=== PATIENT | male | born 1980 | race Caucasian/White ===

== ENCOUNTER 2020-05-04 18:56 | Inpatient (IN) ==
[2020-05-04] MEDS ORDERED: LORazepam 2 MG/ML VIAL IV PRN (19:08)
[2020-05-04] MEDS ORDERED: FLUMAZENIL 0.1 MG/ML ML IV PRN (19:08)
[2020-05-04] MEDS ORDERED: 0.9 % SODIUM CHLORIDE 1,000 ML IV ONE ×3 (19:25→21:03)
[2020-05-04] MEDS ORDERED: ONDANSETRON 4 MG/2 ML VIAL IV PRN ×3 (19:30→23:48)
[2020-05-04] MEDS ORDERED: VANCOMYCIN PER PHARMACY IV ONE (19:31)
--- NOTE | 2020-05-04 19:45 | Emergency Department Note ---
HPI General Chief complaint: Overdose Stated complaint: over dose of meth Time Seen by Provider: 05/04/20 19:00 Source: patient Mode of arrival: ambulatory History of Present Illness HPI Narrative: This is a 40-year-old IV drug user who presents with 1 week of generalized weakness, lethargy, nausea, and malaise causing him to call into [email or web address] for the past 2 weeks. He injects methamphetamines daily. His primary injection sites are his right antecubital and his bilateral popliteal fossa is. His friend helped him inject a combination of methamphetamine and bong water this evening into his right external jugular vein about an hour and a half ago. He denies a history of previous admission for blood infection or endocarditis. He has been using methamphetamines "since he was a teenager." He denies other illicit drug use including heroin. He does smoke marijuana. On exam he is febrile to 102 F and tachycardic with a rate of 134 bpm. EKG shows sinus tachycardia and no acute ST changes to suggest ischemia. Related Data Previous Rx's Medication Instructions Recorded levofloxacin 500 mg PO QDAY #10 tab 03/04/20 Allergies Allergy/AdvReac Type Severity Reaction Status Date / Time No Known Drug Allergies Allergy Unverified 08/15/17 10:50 Review of Systems ROS ROS Narrative: Narrative: All systems ED: reviewed and negative except as stated. [facility] Narrative Patient History Narrative: Narrative: Medical/Surgical/Family History All Active Problems Finger laceration (Acute) Acute orchitis (Acute) Septic shock (Acute) Methamphetamine use (Acute) Active intravenous drug use (Acute) Social History Smoking Status: Current every day smoker Exam Narrative Narrative: General: AOx3, NAD, toxic appearing. Lethargic. HEENT: PERRLA, EOMI, normocephalic. Dry mucous membranes. Normal facies and normal dentition. Left external jugular with puncture wound consistent with recent IV drug use. There is a small area of induration, but no drainage and no erythema. Chest: Symmetric Respiratory: Lungs clear to auscultation bilaterally. No respiratory distress. Unlabored breathing. Heart: Tachycardic, no murmurs/clicks/rubs. Abdomen: Generalized tenderness, Non distended, hypoactive bowel tones. No organomegaly. Extremities: Warm and well perfused. No edema. DP 2+ bilaterally. Neuro: No focal deficits. Cranial nerves II-XII normal. Skin: Hot to the touch, no rashes or lesions, no cyanosis. No petechiae, no erythema, no lesions or abscesses noted Psych: Normal mood and affect, cooperative Heme/Lymph: No bruising Course Course Course Narrative: Is a 40-year-old male IV drug user who presents with sepsis and acute methamphetamine intoxication. Reevaluation(s) Reevaluation #1: Obtain basic labs, blood cultures x2, lactic acid, chest x-ray, UA, UDS, Covid screen reflex to self yet if negative Give IV fluids for resuscitation and start broad-spectrum antibiotics including vancomycin for MRSA coverage Reevaluation #2: Rapid Covid is negative. Chest x-ray shows no acute inf iltrates or septic emboli. Lactic acid is 4.4. Patient has been mildly responsive to IV fluids. His tachycardia is likely exacerbated by his methamphetamine intoxication, so it is unclear if this is compensatory tachycardia or drug-induced tachycardia. Vital Signs Vital signs: Vital Signs Temperature 102.5 F H 05/04/20 19:01 Pulse Rate 136 H 05/04/20 19:01 Respiratory Rate 20 05/04/20 19:01 Blood Pressure 97/54 05/04/20 19:01 Pulse Oximetry (%) 100 05/04/20 19:01 Temperature 100.5 F H 05/04/20 21:59 Pulse Rate 135 H 05/04/20 21:59 Respiratory Rate 24 H 05/04/20 21:59 Blood Pressure 86/65 05/04/20 21:59 Pulse Oximetry (%) 95 05/04/20 21:59 [facility] Narrative Medical decision making narrative: Sepsis: IV drug use related bacteremia and possible endocarditis. The patient is requiring pressors, IV fluids, and broad- spectrum antibiotics at this time. I have spoken with the hospitalist, Dr. Pineda, and he will be accepting the patient for ICU admission. -Sepsis work-up is pending -Patient is getting another 2 L of IV fluid resuscitation with a total of 5 L of IV fluid resuscitation at time of signout -VBG, CRP, ESR, procalcitonin have been ordered at the hospitalist request and are pending -CMP is still pending -UA pending Lab Data Result diagrams: 05/04/20 19:06 05/04/20 19:06 Labs: Lab Results 05/04/20 05/04/2020 Range/Units 19:06 19:06 19:06 WBC 5.4 (4.5-11.0) K/mcL RBC 5.85 (4.50-5.90) M/mcL Hgb 15.4 (13.5-16.5) g/dL Hct 49.1 (41.0-55.0) % MCV 83.9 (80.0-100.0) fL MCH 26.3 (26.0-34.0) pg MCHC 31.4 (31.0-36.0) g/dL RDW 14.0 (11.5-14.5) % Plt Count 277 (140-440) K/mcL MPV 8.9 (7.4-10.4) fL Neut % (Auto) 91.5 H (38.0-78.0) % Lymph % (Auto) 6.9 L (15.0-49.0) % [place] % (Auto) 0.4 L (1.0-12.0) % Eos % (Auto) 0.6 (0.0-7.0) % Baso % (Auto) 0.6 (0.0-2.0) % Lymph # (Auto) 0.37 L (1.50-4.80) K/mcL [place] # (Auto) 0.02 L (0.10-0.90) K/mcL Eos # (Auto) 0.03 (0.00-0.70) K/mcL Baso # (Auto) 0.03 (0.00-0.20) K/mcL Absolute Neutrophils 4.95 (1.80-8.00) K/mcL VBG Lactic Acid (0.5-2.0) mmol/L Sodium TNP Potassium TNP Chloride TNP Carbon Dioxide TNP Anion Gap TNP BUN TNP Creatinine TNP GFR Calculation TNP Glucose TNP Calcium TNP Total Bilirubin TNP AST TNP ALT TNP Alkaline Phosphatase TNP Total Protein TNP Albumin TNP Globulin TNP Albumin/Globulin Ratio TNP Ethyl Alcohol 0.010 H (<0.010) gm/dL 05/04/20 Range/Units 19:56 WBC (4.5-11.0) K/mcL RBC (4.50-5.90) M/mcL Hgb (13.5-16.5) g/dL Hct (41.0-55.0) % MCV (80.0-100.0) fL MCH (26.0-34.0) pg MCHC (31.0-36.0) g/dL RDW (11.5-14.5) % Plt Count (140-440) K/mcL MPV (7.4-10.4) fL Neut % (Auto) (38.0-78.0) % Lymph % (Auto) (15.0-49.0) % [place] % (Auto) (1.0-12.0) % Eos % (Auto) (0.0-7.0) % Baso % (Auto) (0.0-2.0) % Lymph # (Auto) (1.50-4.80) K/mcL [place] # (Auto) (0.10-0.90) K/mcL Eos # (Auto) (0.00-0.70) K/mcL Baso # (Auto) (0.00-0.20) K/mcL Absolute Neutrophils (1.80-8.00) K/mcL VBG Lactic Acid 4.4 H* (0.5-2.0) mmol/L Sodium Potassium Chloride Carbon Dioxide Anion Gap BUN Creatinine GFR Calculation Glucose Calcium Total Bilirubin AST ALT Alkaline Phosphatase Total Protein Albumin Globulin Albumin/Globulin Ratio Ethyl Alcohol (<0.010) gm/dL CC TIME Critical Care Time Critical Care Time: Yes Total Critical Care Time: 50 Attestation: I have spent 50 minutes of direct bedside care of this critically ill patient and management of his sepsis with aggressive IV fluid resuscitation, pressor administration, initiation of broad-spectrum antibiotics coordination of care for ICU hospital admission with the on-call hospitalist. Discharge Plan Patient/Caregiver Discharge Instructions Pt seen by TEACHER VOCAL/PA only: Yes Clinical Impression: Septic shock, Methamphetamine use, Active intravenous drug use Patient Disposition: Xfer As Inpt ([facility]) Condition: Undetermined Follow up with: No,PCP [Primary Care Provider] - Prescriptions: No Action levofloxacin 500 mg tablet 500 mg PO QDAY Qty: 10 RF: 0
[2020-05-04 20:11] LABS: Basophils # (Auto) 0.03 K/mcL (0.00-0.20); Basophils % (Auto) 0.6 % (0.0-2.0); Eosinophils # (Auto) 0.03 K/mcL (0.00-0.70); Eosinophils % (Auto) 0.6 % (0.0-7.0); Hematocrit 49.1 % (41.0-55.0); Hemoglobin 15.4 g/dL (13.5-16.5); Lymphocytes # (Auto) 0.37 K/mcL (1.50-4.80); Lymphocytes % (Auto) 6.9 % (15.0-49.0); Mean Cell Volume 83.9 fL (80.0-100.0); Mean Corpuscular HGB Conc 31.4 g/dL (31.0-36.0); Mean Platelet Volume 8.9 fL (7.4-10.4); Monocytes # (Auto) 0.02 K/mcL (0.10-0.90); Monocytes % (Auto) 0.4 % (1.0-12.0); Neutrophils % (Auto) 91.5 % (38.0-78.0); Platelet Count 277 K/mcL (140-440); RBC 5.85 M/mcL (4.50-5.90); WBC 5.4 K/mcL (4.5-11.0)
[2020-05-04 20:34] LABS: Alcohol, Blood < 10.0 mg/dL
[2020-05-04] MEDS ORDERED: VANCOMYCIN 2,000 MG in 0.9 % SODIUM CHLORIDE 500 ML IV ONE (20:43)
[2020-05-04] MEDS ORDERED: PIPERACILLIN SODIUM/TAZOBACTAM 3.375 GM in DEXTROSE 5% IN WATER 50 ML IV ONE (20:45)
[2020-05-04] MEDS ORDERED: ACETAMINOPHEN 1,000 MG/100 ML BAG IV ONE (20:51)
[2020-05-04] MEDS ORDERED: 0.9 % SODIUM CHLORIDE 2,000 ML IV ONE (21:58)
[2020-05-04] MEDS ORDERED: 0.9 % SODIUM CHLORIDE 250 ML IV SCH (22:00)
[2020-05-04] MEDS ORDERED: NOREPINEPHRINE BITARTRATE 8 MG in 0.9 % SODIUM CHLORIDE 242 ML IV SCH (22:00)
--- NOTE | 2020-05-04 22:00 | Internal Med History&Physical ---
HPI History of Present Illness Patient information: Note initiated : 05/04/20 at 9:57 pm Service Date, if different from initiated Date: [] Patient: Aime De La Fuente 40 y/o M admitted on for over dose of meth. 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 Patient missed going to work for over a week however did not seek medical help. He complains of associated poor appetite but denies dysuria, diarrhea, skin rash, hematuria cough. He also denies sick contacts. Patient does complains of lower back pain/left knee swelling/weakness left leg but denies diplopia/draining skin lesions. He is extremely anxious and fidgety He is a regular injection drug use methamphetamine and last used an hour and a half prior to presentation patient his friend helped him inject external jugular vein. Initial work-up in the ER was consistent with septic shock with systolics in 80s with tachycardia 140/tachypnea 35/hypoxia requiring 4 L oxygen and a fever of 102.5. Patient received 5 L of crystalloid bolus started on pressors. Cultures were drawn and antibiotics initiated. Lactic acid 4.4/creatinine 1.5/elevated LFTs consistent with multiple endorgan dysfunction Subsequently hospitalist service was consulted for admission and management of septic shock from unclear source. Likely bacteremia from injection drug use Review of systems 10 point review system was performed and is negative except for ones discussed above PFSH PFSH All Active Problems Knee effusion, left (Acute) Finger laceration (Acute) Acute orchitis (Acute) Septic shock (Acute) Methamphetamine use (Acute) Active intravenous drug use (Acute) Social History smoking status: Unknown if ever smoked MEDS/ALLERGIES Home Medications and Allergies Home Medications Medication Instructions Recorded Confirmed Type No Known Home Meds 05/05/20 05/05/20 History Allergies Allergy/AdvReac Type Severity Reaction Status Date / Time No Known Drug Allergies Allergy Unverified 08/15/17 10:50 EXAM Constitutional Vitals: Temp Pulse Resp BP Pulse Ox 102.7 F H 136 H 31 H 90/65 93 05/04/20 21:08 05/04/20 21:01 05/04/20 21:01 05/04/20 21:01 05/04/20 21:01 Very anxious Head normocephalic Oral cavity moist No ear nose discharge Eye movement symmetrical, no subconjunctival hemorrhage Neck supple no lymphadenopathy S1-S2 tachycardia at 140 Nonlabored breathing Nondistended nontender abdomen Lower back tenderness but no area of fluctuance Left knee swelling noted. Right lower extremity no cyanosis clubbing or joint swelling Skin no suspicious lesion, splinter hemorrhage Psych anxious no hallucination Neuro normal higher function DATA Data Completed and Pending Labs: Labs from last 24 hours 05/04/20 05/04/20 05/04/20 19:56 19:56 19:54 WBC RBC Hgb Hct MCV MCH MCHC RDW Plt Count MPV Neut % (Auto) Lymph % (Auto) [place] % (Auto) Eos % (Auto) Baso % (Auto) Lymph # (Auto) [place] # (Auto) Eos # (Auto) Baso # (Auto) Absolute Neutrophils VBG Lactic Acid 4.4 H* Sodium Pending Potassium Pending Chloride Pending Carbon Dioxide Pending Anion Gap Pending BUN Pending Creatinine Pending GFR Calculation Pending Glucose Pending Calcium Pending Total Bilirubin Pending AST Pending ALT Pending Alkaline Phosphatase Pending Total Protein Pending Albumin Pending Globulin Pending Albumin/Globulin Ratio Pending Ethyl Alcohol SARS-CoV-2 (PCR) Pending 05/04/20 05/04/20 05/04/20 19:06 19:06 19:06 WBC 5.4 RBC 5.85 Hgb 15.4 Hct 49.1 MCV 83.9 MCH 26.3 MCHC 31.4 RDW 14.0 Plt Count 277 MPV 8.9 Neut % (Auto) 91.5 H Lymph % (Auto) 6.9 L [place] % (Auto) 0.4 L Eos % (Auto) 0.6 Baso % (Auto) 0.6 Lymph # (Auto) 0.37 L [place] # (Auto) 0.02 L Eos # (Auto) 0.03 Baso # (Auto) 0.03 Absolute Neutrophils 4.95 VBG Lactic Acid Sodium TNP Potassium TNP Chloride TNP Carbon Dioxide TNP Anion Gap TNP BUN TNP Creatinine TNP GFR Calculation TNP Glucose TNP Calcium TNP Total Bilirubin TNP AST TNP ALT TNP Alkaline Phosphatase TNP Total Protein TNP Albumin TNP Globulin TNP Albumin/Globulin Ratio TNP Ethyl Alcohol 0.010 H SARS-CoV-2 (PCR) A/P Narrative A/P Narrative: * Septic shock-elevated lactate/fever/tachycardia tachypnea with multiple endorgan dysfunction. Pancultures/antibiotic coverage. Broad-spectrum antibiotics/vasopressors/crystalloids/venous lactate trending. * Probable bacteremia in the setting of IV drug use. Rule out endocarditis. Procalcitonin/ESR/endocarditis work-up including serial blood cultures/echocardiogram * Acute renal failure creatinine 1.5 secondary septic shock. Aggressive crystalloids * Acute hypoxic respiratory failure secondary to septic shock endorgan dysfunction. Chest x-ray no evidence of pneumonia * Elevated LFTs early shock liver. Crystalloids * Anion gap lactic acidosis -secondary to severe sepsis and endorgan dysfunction * Left knee swelling likely septic arthritis. Arthrocentesis/joint fluid studies * Injection drug use-counseled for cessation, Case management to coordinate rehab resources/outpatient substance abuse detoxification program * Full code Plan * ICU admission * Vasopressors/antibiotics/crystalloids * Venous lactate trending * Monitor urine output/avoid nephrotoxins * Echocardiogram * CT lower back * Arthrocentesis/joint fluid studies * Serial blood culture Patient critically ill. [place] 2 score 18 with multiple endorgan dysfunction. Admit to ICU. Time spent on evaluation/management of septic shock in excess of 110 minutes including 35 minutes critical care time Time Spent With Patient Time: Total time spent is greater than 50% in coordination of care (as documented) at patient's floor/unit and/or counseling patient:
[2020-05-04 22:07] LABS: ALT/SGPT 91 U/L (<40); AST/SGOT 177 U/L (<40); Albumin 3.3 gm/dL (3.2-5.2); Albumin/Globulin Ratio 1.1 (1.0-2.3); Alkaline Phosphatase 153 U/L (39-117); Bilirubin,Total 0.4 mg/dL (0.1-1.0); Blood Urea Nitrogen 15 mg/dL (6-20); Calcium 8.6 mg/dL (8.6-10.4); Carbon Dioxide 23 mmol/L (22-30); Chloride 100 mmol/L (96-108); Glomerular Filtration Rate 58; Glucose 79 mg/dL (70-105)
[2020-05-04 22:50] LABS: ABG Methemoglobin 0.3 % (0.4-1.5); Total Hemoglobin 12.4 gm/Dl (13.5-16.5); VBG Base Excess -4 (-2-3); VBG HCO3 21.3 mmol/L (24.0-28.0); VBG Oxygen Saturation 82.1 % (40.0-70.0); VBG PCO2 37.8 mmHg (41.0-51.0); VBG PH 7.37 U (7.32-7.42); VBG Total CO2 22.4 mmol/L (25.0-29.0)
[2020-05-04] MEDS ORDERED: BISACODYL 10 MG SUPP.RECT PR PRN (23:48)
[2020-05-04] MEDS ORDERED: POLYETHYLENE GLYCOL 3350 17 GM PACKET PO PRN (23:48)
[2020-05-04] MEDS ORDERED: VANCOMYCIN PER PHARMACY IV SCH (23:48)
[2020-05-04] MEDS ORDERED: ONDANSETRON 4 MG ODT TABLET SL PRN (23:48)
[2020-05-04] MEDS ORDERED: MAGNESIUM SULFATE 2 GM/50 ML BAG IV PRN (23:48)
[2020-05-04] MEDS ORDERED: POTASSIUM CHLORIDE 40 MEQ in DEXTROSE 5% IN WATER 500 ML IV PRN (23:48)
[2020-05-04] MEDS ORDERED: POTASSIUM CHLORIDE 20 MEQ PACKET PO PRN (23:48)
[2020-05-04] MEDS ORDERED: ACETAMINOPHEN 650 MG/65 ML BAG IV PRN (23:48)
[2020-05-05] MEDS: 0.9 % SODIUM CHLORIDE 250 ML IV SCH ×2 (00:54→16:05)
[2020-05-05] MEDS: 0.9 % SODIUM CHLORIDE 1,000 ML IV SCH ×5 (00:54→22:08)
[2020-05-05] MEDS: NOREPINEPHRINE BITARTRATE 8 MG in 0.9 % SODIUM CHLORIDE 242 ML IV SCH ×2 (00:55→12:31)
[2020-05-05] MEDS: 0.9 % SODIUM CHLORIDE 10 ML SYRINGE IV SCH ×5 (00:55→21:25)
[2020-05-05] MEDS: PIPERACILLIN SODIUM/TAZOBACTAM 3.375 GM in DEXTROSE 5% IN WATER 50 ML IV SCH ×4 (01:30→17:30)
[2020-05-05 02:23] LABS: Appearance,Urine CLOUDY (Clear); Bilirubin,Urine Negative (Negative); Color,Urine YELLOW; Culture Indicated,Urine No; Glucose,Urine (UA) Negative (Negative); Ketones,Urine Negative (Negative); Leukocyte Esterase,Urine Negative /ug (Negative); Mucus,Urine MANY /hpf; Nitrate,Urine Negative (Negative); Protein,Urine 100 mg/dL (Negative); Specific Gravity,Urine 1.019 (1.000-1.035); Urine Amorphous Crystals FEW /hpf; Urine Blood Negative (Negative); Urine Hyaline Cast 22 /lph (0-2); Urine RBC 1 /hpf (0-3); Urine Squamous Epithelial Cell 0 /hpf (0-4); Urine WBC 5 /hpf (0-4); Urobilinogen,Urine Negative
--- NOTE | 2020-05-05 02:39 | Consultation ---
DATE OF CONSULTATION: 05/05/2020 REASON FOR CONSULTATION: Rule out septic left knee. CONSULTING PERSON: Hospitalist, Dr. Cordova. HISTORY OF PRESENT ILLNESS: The patient is currently somewhat uncomfortable and has limited capacity to discuss his current situation, but with chart review, information was collected. He has been complaining of approximately 1- 2 weeks of weakness, fatigue, fevers and has been missing work secondary to this. He has presented to the Emergency Department for further evaluation and treatment. He is a known daily IV drug user with methamphetamine with last use approximately an hour and a half prior to his admission. He was found to be septic in the ER with hypotension, tachycardia, and a fever of 102 and was started on pressors and antibiotics and admitted to the ICU. Currently, concern is for bacteremia from IV drug use, but also has a painful left knee with swelling. Aspiration was attempted in the Emergency Department without success and thus orthopedics was consulted for further evaluation. PAST MEDICAL HISTORY: None reported PAST SURGICAL HISTORY: He has had operative fixation of his right tibial plateau fracture. ALLERGIES: No known drug allergies. MEDICATIONS: None routinely. 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 REVIEW OF SYSTEMS: As mentioned. He has been complaining of fevers, chills, aches, pains, left knee pain as well as some back pain. Otherwise, the 10 pointt review of systems negative as best could be obtained for him today. PHYSICAL EXAMINATION: VITAL SIGNS: His blood pressure is 96/94, heart rate 109, respiratory rate is 22, currently afebrile at temperature 96, but on admission was 102. GENERAL: He is somewhat comfortable, does answer appropriately as is alert to that extent. EXTREMITIES: Examination of his left lower extremity does not reveal any abrasions or skin lacerations were noted. He has a Band-Aid over his left knee from prior attempt at aspiration over anterolateral portal position. He can flex and extend his knee. With passive motion, it is not painful with extension, but does have pain past approximately 50 degrees of flexion but able to flex to 90 degrees. Positve joint effusion of the knee.. No tenderness about the ankle itself. His foot is warm and well perfused. Sensation to light touch is intact. IMAGING: He has plain x-rays of his left knee, which has a small joint effusion. No fractures noted or underlying osteomyelitis. LABORATORY DATA: He has a CRP of 1.4, ESR of 14. Lactic acid is pending. His creatinine is 1.5, elevated liver enzymes and renal function somewhat decreased. His white count is 5.4, H and H is 15.4 and 49.1. He does have a left shift, 91%. COVID test is negative. Blood cultures were pending. ASSESSMENT AND PLAN: This is a 40-year-old male with known IV drug use with septic picture with concern for involvement of his left knee. Overall, clinically does not appear to be significantly indicative of infection. However, given his overall picture along with the joint effusion, I think aspiration is reasonable to send it for labs. Did discuss if these are positive for infection, a recommendation would be for formal irrigation and debridement given the underlying risk of damage to the cartilage. The patient is amenable to this. Thus, the knee was sterilely prepped along the superolateral border of the patella itself with Betadine. Utilizing 18-gauge needle, the joint was aspirated of slightly cloudy synovial fluid. No purulence and could see through it. About 25 mL was aspirated, Once this was removed, a Band-Aid was applied. The patient did tolerate this well. There was no complications. The fluid was sent off for cultures, Gram stain, cell count with differential, crystals as well as fungal cultures. We will follow up on these cultures in the morning. Review labs in the morning and if they indicate infection, then we would proceed with irrigation and debridement. The patient is aware. Questions were otherwise answered. DLW:beverly Job ID: [id number] Doc ID: [id number] Ha Gomez MD [facility]
[2020-05-05 04:53] LABS: Appearance,Synovial Fluid Hazy; Color,Synovial Fluid Yellow; Crystals,Body Fluid None Seen (None Seen); Lymphocytes,Synovial Fluid 23 %; Neutrophils,Synovial Fluid 24 % (0-25); Nucleated Cells,Synovial Fld 6662 /cumm; Other Cells,Synovial Fluid 53 %
[2020-05-05 07:04] LABS: ALT/SGPT 107 U/L (<40); AST/SGOT 144 U/L (<40); Albumin 2.8 gm/dL (3.2-5.2); Alkaline Phosphatase 127 U/L (39-117); Bilirubin,Direct 0.3 mg/dL (<0.3); Bilirubin,Total 0.6 mg/dL (0.1-1.0); Blood Urea Nitrogen 18 mg/dL (6-20); Calcium 7.5 mg/dL (8.6-10.4); Carbon Dioxide 21 mmol/L (22-30); Chloride 105 mmol/L (96-108); Globulin 2.9 gm/dL (2.2-3.7); Glomerular Filtration Rate 47; Glucose 94 mg/dL (70-105); Lactate Dehydrogenase 357 U/L (135-225); Phosphorous 2.2 mg/dL (2.5-4.5); Triglycerides 64 mg/dL (<150); Uric Acid 5.9 mg/dL (2.5-8.0)
--- NOTE | 2020-05-05 07:09 | Orthopedic Progress Note ---
SUBJECTIVE Subjective Patient information: Note initiated : 05/05/20 at 7:05 am Service Date, if different from initiated Date: [] Patient: Aime De La Fuente 40 y/o M admitted on 05/04/20 for over dose of meth. Chief Complaint: [r/o left knee septic arthritis] Constitutional Vitals: Vital Signs Temp Pulse Resp BP Pulse Ox 99.1 F H 107 H 21 97/62 98 05/05/20 04:16 05/05/20 05:02 05/05/20 05:52 05/05/20 05:31 05/05/20 05:02 Period Temp Pulse Resp BP Sys/Rodriguez Pulse Ox Last 24 Hr 96 F-102.7 F 29-140 16-35 76-118/41-89 92-100 Intake and Output 05/04/20 05/05/20 05/05/20 21:59 05:59 13:59 Intake Total 3150 1778 Output Total 1100 Balance 3150 678 Weight 203 lb 6.4 oz 211 lb 3.2 oz Intake & Output: Intake & Output 05/04/20 05/05/20 05/05/20 21:59 05:59 13:59 Intake Total 3150 1778 Output Total 1100 Balance 3150 678 Weight 203 lb 6.4 oz 211 lb 3.2 oz Intake: IV 3150 1778 Sodium Chloride 0.9% 2,000 ml @ 3000 1349 Wide Open IV BOLUS ONE Rx#: [id number] Levophed 8 mg In Sodium 25 Chloride 0.9% 242 ml @ 10 MCG/ MIN 18.75 mls/hr IV Q14H [facility] Rx #:[id number] Zosyn 3.375 gm In Dextrose 5% 50 50 in Water 50 ml @ 100 mls/hr IV Q6H [facility] Rx#:[id number] Vancomycin 2,000 mg In Sodium 354 Chloride 0.9% 500 ml @ 250 mls/ hr IV ONCE ONE Rx#:[id number] Output: Urine Catheter Amount 1100 Other: Urine Appearance Clear Uretheral (Alatorre) Clear Urine Color Dark Yellow Straw Uretheral (Alatorre) Dark Yellow OBJ DATA Labs CBC & Chem 7: 05/04/20 19:06 05/05/20 05:43 Labs: Abnormal Lab Results 05/05/20 05/05/20 05/05/20 05:43 05:43 01:20 Neut % (Auto) Lymph % (Auto) [place] % (Auto) Lymph # (Auto) [place] # (Auto) ABG Methemoglobin VBG pCO2 VBG pO2 VBG HCO3 VBG Total CO2 VBG O2 Saturation VBG Base Excess VBG Lactic Acid 3.5 H Carboxyhemoglobin Total Hemoglobin Carbon Dioxide 21 L Anion Gap Creatinine 1.8 H Calcium 7.5 L Phosphorus 2.2 L Magnesium 1.4 L Direct Bilirubin 0.3 H GGT 184 H AST 144 H ALT 107 H Alkaline Phosphatase 127 H Lactate Dehydrogenase 357 H C-Reactive Protein Total Protein 5.7 L Albumin 2.8 L Procalcitonin Urine Appearance Cloudy A Urine Protein 100 A Urine WBC 5 H Amorphous Crystals Few A Hyaline Casts 22 H Urine Mucus Many A Ethyl Alcohol 05/05/20 05/04/20 05/04/20 00:15 22:11 22:11 Neut % (Auto) Lymph % (Auto) [place] % (Auto) Lymph # (Auto) [place] # (Auto) ABG Methemoglobin 0.3 L VBG pCO2 37.8 L VBG pO2 53.0 H VBG HCO3 21.3 L VBG Total CO2 22.4 L VBG O2 Saturation 82.1 H VBG Base Excess -4 L VBG Lactic Acid 3.4 H Carboxyhemoglobin 5.2 H Total Hemoglobin 12.4 L Carbon Dioxide Anion Gap Creatinine Calcium Phosphorus Magnesium Direct Bilirubin GGT AST ALT Alkaline Phosphatase Lactate Dehydrogenase C-Reactive Protein Total Protein Albumin Procalcitonin 79.04 H Urine Appearance Urine Protein Urine WBC Amorphous Crystals Hyaline Casts Urine Mucus Ethyl Alcohol 05/04/20 05/04/20 05/04/20 22:11 19:56 19:56 Neut % (Auto) Lymph % (Auto) [place] % (Auto) Lymph # (Auto) [place] # (Auto) ABG Methemoglobin VBG pCO2 VBG pO2 VBG HCO3 VBG Total CO2 VBG O2 Saturation VBG Base Excess VBG Lactic Acid 4.4 H* Carboxyhemoglobin Total Hemoglobin Carbon Dioxide Anion Gap 17.0 H Creatinine 1.5 H Calcium Phosphorus Magnesium Direct Bilirubin GGT AST 177 H ALT 91 H Alkaline Phosphatase 153 H Lactate Dehydrogenase C-Reactive Protein 1.40 H Total Protein Albumin Procalcitonin Urine Appearance Urine Protein Urine WBC Amorphous Crystals Hyaline Casts Urine Mucus Ethyl Alcohol 05/04/20 05/04/20 19:06 19:06 Neut % (Auto) 91.5 H Lymph % (Auto) 6.9 L [place] % (Auto) 0.4 L Lymph # (Auto) 0.37 L [place] # (Auto) 0.02 L ABG Methemoglobin VBG pCO2 VBG pO2 VBG HCO3 VBG Total CO2 VBG O2 Saturation VBG Base Excess VBG Lactic Acid Carboxyhemoglobin Total Hemoglobin Carbon Dioxide Anion Gap Creatinine Calcium Phosphorus Magnesium Direct Bilirubin GGT AST ALT Alkaline Phosphatase Lactate Dehydrogenase C-Reactive Protein Total Protein Albumin Procalcitonin Urine Appearance Urine Protein Urine WBC Amorphous Crystals Hyaline Casts Urine Mucus Ethyl Alcohol 0.010 H Meds: Medications Acetaminophen (Tylenol) 650 mg PO Q4-6HP PRN; Protocol PRN Reason: Per Pain Protocol/Fever > 101 Bisacodyl (Dulcolax) 10 mg [place] Q2-3DAYS PRN PRN Reason: Constipation Docusate Sodium (Colace) 100 mg PO BID [facility] Heparin Sodium (Porcine) (Heparin) 5,000 unit SQ Q12 [facility] Sodium Chloride (Sodium Chloride 0.9%) 250 mls @ 20 mls/hr IV .[id number] [facility] Last Admin: 05/05/20 00:54 Dose: 20 mls/hr Documented by: Sodium Chloride (Sodium Chloride 0.9%) 1,000 mls @ 0 mls/hr IV BOLUS [facility] Last Admin: 05/05/20 00:54 Dose: 999 mls/hr Documented by: Potassium Chloride 40 meq/ (Dextrose) 520 mls @ 130 mls/hr IV UD PRN PRN Reason: K+ = or < 3.5 Acetaminophen (Ofirmev) 650 mg in 65 mls @ 130 mls/hr IV Q6HP PRN; Protocol PRN Reason: Per Pain Protocol/Fever > 101 Magnesium Sulfate (Magnesium Sulfate) 2 gm in 50 mls @ 50 mls/hr IV UD PRN PRN Reason: MG = or < 1.7 Sodium Chloride (Sodium Chloride 0.9%) 1,000 mls @ 100 mls/hr IV .Q10H [facility] Last Admin: 05/05/20 01:41 Dose: 100 mls/hr Documented by: Piperacillin Sod/Tazobactam (Sod 3.375 gm/ Dextrose) 50 mls @ 100 mls/hr IV Q6H [facility]; Protocol Last Admin: 05/05/20 06:19 Dose: 100 mls/hr Documented by: Norepinephrine Bitartrate 8 mg (/ Sodium Chloride) 250 mls @ 18.75 mls/hr IV Q14H [facility]; Protocol Last Admin: 05/05/20 00:55 Dose: Not Given Documented by: Vancomycin HCl 1,000 mg/ (Sodium Chloride) 250 mls @ 250 mls/hr IV Q8H [facility] Melatonin (Melatonin 3mg Tablet) 3 mg PO HSP PRN PRN Reason: Insomnia Ondansetron HCl (Zofran Odt) 4 mg SL Q4-6HP PRN; Protocol PRN Reason: Nausea And Vomiting Ondansetron HCl (Zofran) 4 mg IV Q4-6HP PRN; Protocol PRN Reason: Nausea And Vomiting Polyethylene Glycol (Miralax) 17 gm PO DAILYP PRN PRN Reason: Constipation Potassium Chloride (Klor-Con) 40 meq PO DAILYP PRN PRN Reason: K+ < 3.5 Senna/Docusate Sodium (Senna Plus Tablet) 1 tab PO HS [facility] Sodium Chloride (Saline Flush) 10 ml IV Q8 [facility] Last Admin: 05/05/20 06:20 Dose: 10 ml Documented by: Vancomycin HCl (Vancomycin Per Pharmacy) 1 order IV UD [facility]; Protocol ABG Interpretation ABG results: 05/04/20 22:11 ABG Methemoglobin 0.3 L VBG pH 7.37 VBG pCO2 37.8 L VBG pO2 53.0 H VBG HCO3 21.3 L VBG Total CO2 22.4 L VBG O2 Saturation 82.1 H VBG Base Excess -4 L A/P Assessment and plan (1) Knee effusion, left: Status: Acute Comment: aspirated left knee early this AM for effusion in picture of septic IV drug user to rule out left septic knee joint - cell count 6600 with 24% neutrophils. grams stain negative, cultures are pending, no crystals --- given the cell count along with % neutrophils, this is not a septic joint. --- Currently no plan for operative treatment of left knee joint effusion, however if condition changes such as increased effusion, pain, difficulty in bending knee, weight bearing status can re- consult. thank you. Time Spent With Patient Time: Total time spent is greater than 50% in coordination of care (as documented) at patient's floor/unit and/or counseling patient:
[2020-05-05 07:48] LABS: Amphetamine Screen,Urine Suspect positive; Barbiturate Screen,Urine None detected; Benzodiazepines Screen,Urine None detected; Cannabinoid Screen,Urine Suspect Positive; Cocaine Screen,Urine None detected; Opiate Screen,Urine None detected; Oxycodone, Urine Screen None detected; Phencyclidine Screen,Urine None detected
[2020-05-05 08:35] LABS: Basophils # (Auto) 0.11 K/mcL (0.00-0.20); Basophils % (Auto) 0.3 % (0.0-2.0); Eosinophils # (Auto) 0.12 K/mcL (0.00-0.70); Eosinophils % (Auto) 0.3 % (0.0-7.0); Hematocrit 39.5 % (41.0-55.0); Hemoglobin 12.5 g/dL (13.5-16.5); Lymphocytes # (Auto) 0.82 K/mcL (1.50-4.80); Lymphocytes % (Auto) 2.3 % (15.0-49.0); Mean Cell Volume 84.4 fL (80.0-100.0); Mean Corpuscular HGB Conc 31.6 g/dL (31.0-36.0); Mean Platelet Volume 8.7 fL (7.4-10.4); Monocytes # (Auto) 1.27 K/mcL (0.10-0.90); Monocytes % (Auto) 3.6 % (1.0-12.0); Neutrophils % (Auto) 93.5 % (38.0-78.0); Platelet Count 254 K/mcL (140-440); RBC 4.68 M/mcL (4.50-5.90); Red Cell Distribution Width 14.6 % (11.5-14.5); WBC 35.5 K/mcL (4.5-11.0)
--- NOTE | 2020-05-05 08:39 | XRay Report ---
HISTORY: Overdose of methamphetamine FINDINGS: The lungs are clear and normally expanded. There is no pulmonary edema or evidence of aspiration. The heart size, mediastinum, ira and pleura are normal. There is mild separation of the left acromioclavicular joint. IMPRESSION: No acute abnormality Interpreted and Authenticated by: Darvin Pimentel 05/05/20
--- NOTE | 2020-05-05 08:46 | XRay Report ---
HISTORY: Left knee joint effusion FINDINGS: The joint spaces are normal in width and alignment. There is no fracture, subluxation or degenerative change. A small suprapatellar joint effusion is present. There are no abnormal soft tissue calcifications. IMPRESSION: Small joint effusion Interpreted and Authenticated by: Darvin Pimentel 05/05/20
[2020-05-05] MEDS ORDERED: 0.9 % SODIUM CHLORIDE 1,000 ML IV ONE ×2 (09:27→11:39)
[2020-05-05] MEDS: LORazepam 2 MG/ML VIAL IV ONE ×2 (10:08→11:14)
[2020-05-05] MEDS ORDERED: LORazepam 2 MG/ML VIAL ONE (10:13)
--- NOTE | 2020-05-05 10:57 | XRay Report ---
HISTORY: Right central line insertion FINDINGS: Right internal jugular catheter has been inserted with the tip in the superior vena cava above the right atrium. There is no pneumothorax, pleural effusion or widening of the mediastinum. The heart size is normal. There is a generalized haziness in the lung parenchyma bilaterally, most apparent around the lower ira, right worse than left. This has developed since the prior chest x-ray done yesterday. This could be due to inflammation or fluid overload. IMPRESSION: No complication following central line placement Interpreted and Authenticated by: Darvin Pimentel 05/05/20
--- NOTE | 2020-05-05 11:13 | General Surgery Procedure Note ---
Date of procedure: Note initiated : 05/05/20 at 11:07 am Service Date, if different from initiated Date: [] Pre-op diagnosis: Septic shock Post-op diagnosis: same Procedure: US guided RIJ central line Findings: 1) placed with single stick 2) Wire confirmed on US in RIJ 3) post procedure CXR shows tip near atrial caval junction - well positioned. OK to use Grafts/Implants: Central line Anesthesia: local Surgeon: Rhys Watts Estimated blood loss: 2 Pathology: none sent Description of procedure: Consent obtained. Area sterilely prepped and draped. RIJ confirmed to be patent, compressible lateral vessel on US. Pt placed in Trendelenburg - single stick into vein with dark non pulsatile blood. Wire threaded easily. Skin nicked with scalpel. tack dilated. Central line - preflushed and placed to 15cm at skin. Wire removed. All ports flushed and dew easily. Sutured in place. Dressing applied. CXR obtain with results as above. Pt tolerated well. Condition: critical Disposition: ICU
[2020-05-05] MEDS: DOCUSATE SODIUM 100 MG CAPSULE PO SCH ×2 (11:55→20:36)
[2020-05-05] MEDS: HEPARIN 5,000 UNIT/ML VIAL SQ SCH ×2 (11:55→20:36)
[2020-05-05] MEDS: 0.9 % SODIUM CHLORIDE 10 ML SYRINGE IV PRN (11:57)
[2020-05-05] MEDS ORDERED: NOREPINEPHRINE BITARTRATE 8 MG in 0.9 % SODIUM CHLORIDE 242 ML IV SCH (12:00)
--- NOTE | 2020-05-05 12:10 | Internal Med Progress Note ---
SUBJECTIVE Subjective Patient information: Note initiated : 05/05/20 at 12:02 pm Service Date, if different from initiated Date: [] Patient: Aime De La Fuente 40 y/o M admitted on 05/04/20 for over dose of meth. 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 Patient missed going to work for over a week however did not seek medical help. He complains of associated poor appetite but denies dysuria, diarrhea, skin rash, hematuria cough. He also denies sick contacts. Patient does complains of lower back pain/left knee swelling/weakness left leg but denies diplopia/draining skin lesions. He is extremely anxious and fidgety He is a regular injection drug use methamphetamine and last used an hour and a half prior to presentation patient his friend helped him inject external jugular vein. Initial work-up in the ER was consistent with septic shock with systolics in 80s with tachycardia 140/tachypnea 35/hypoxia requiring 4 L oxygen and a fever of 102.5. Patient received 5 L of crystalloid bolus started on pressors. Cultures were drawn and antibiotics initiated. Lactic acid 4.4/creatinine 1.5/elevated LFTs consistent with multiple endorgan dysfunction Subsequently hospitalist service was consulted for admission and management of septic shock from unclear source. Likely bacteremia from injection drug use 05/05-patient critically ill and septic shock requiring pressors. Status post 7 discussed lines. Echocardiogram completed. White count at 35,000 indicative leukemoid reaction. Cultures negative so far. On broad-spectrum antibiotic c overage. Improving urine output. Lactate downtrending. Creatinine up from 1.5-1.8 however urine output more than 40 cc an hour. Magnesium 1.4, phosphorus 2.2, urine drug screen positive for meth/marijuana, Covid PCR pending, left knee joint fluid aspirate 6000 white cell. Central line secured. Procalcitonin 79. Constitutional Vitals: Vital Signs Temp Pulse Resp BP Pulse Ox 100.4 F H 110 H 23 H 130/81 98 05/05/20 07:31 05/05/20 08:31 05/05/20 11:01 05/05/20 11:01 05/05/20 11:01 Period Temp Pulse Resp BP Sys/Rodriguez Pulse Ox Last 24 Hr 96 F-102.7 F 29-140 16-35 76-130/41-89 20-100 Intake and Output 05/04/20 05/05/20 05/05/20 21:59 05:59 13:59 Intake Total 3150 1778 50 Output Total 1100 1260 Balance 3150 678 -1210 Weight 92.261 kg 95.799 kg Remains critically ill On pressors remains tachycardic and tachypneic Alatorre draining clear urine Central line secured On room air, febrile 100.4 Intake & Output: Intake & Output 05/04/20 05/05/20 05/05/20 21:59 05:59 13:59 Intake Total 3150 1778 50 Output Total 1100 1260 Balance 3150 678 -1210 Weight 92.261 kg 95.799 kg Intake: IV 3150 1778 50 Sodium Chloride 0.9% 2,000 ml @ 3000 1349 Wide Open IV [facility] Rx#: [id number] Levophed 8 mg In Sodium 25 Chloride 0.9% 242 ml @ 10 MCG/ MIN 18.75 mls/hr IV Q14H [facility] Rx #:[id number] Zosyn 3.375 gm In Dextrose 5% 50 50 50 in Water 50 ml @ 100 mls/hr IV Q6H [facility] Rx#:[id number] Vancomycin 2,000 mg In Sodium 354 Chloride 0.9% 500 ml @ 250 mls/ hr IV ONCE ONE Rx#:[id number] Output: Urine Catheter Amount 1100 1260 Other: Urine Appearance Clear Clear Uretheral (Alatorre) Clear Urine Color Dark Yellow Dark Yellow Straw Uretheral (Alatorre) Dark Yellow OBJ DATA Labs CBC & Chem 7: 05/05/20 05:43 05/05/20 05:43 Labs: Abnormal Lab Results 05/05/20 05/05/20 05/05/20 05:43 05:43 05:43 WBC 35.5 H* Hgb 12.5 L Hct 39.5 L RDW 14.6 H Neut % (Auto) 93.5 H Lymph % (Auto) 2.3 L [place] % (Auto) Lymph # (Auto) 0.82 L [place] # (Auto) 1.27 H Absolute Neutrophils 33.18 H ABG Methemoglobin VBG pCO2 VBG pO2 VBG HCO3 VBG Total CO2 VBG O2 Saturation VBG Base Excess VBG Lactic Acid 3.5 H Carboxyhemoglobin Total Hemoglobin Carbon Dioxide 21 L Anion Gap Creatinine 1.8 H Calcium 7.5 L Phosphorus 2.2 L Magnesium 1.4 L Direct Bilirubin 0.3 H GGT 184 H AST 144 H ALT 107 H Alkaline Phosphatase 127 H Lactate Dehydrogenase 357 H C-Reactive Protein Total Protein 5.7 L Albumin 2.8 L Procalcitonin Urine Appearance Urine Protein Urine WBC Amorphous Crystals Hyaline Casts Urine Mucus Ur Amphetamines Screen U Marijuana (THC) Screen Ethyl Alcohol 05/05/20 05/05/20 05/05/20 01:20 01:16 00:15 WBC Hgb Hct RDW Neut % (Auto) Lymph % (Auto) [place] % (Auto) Lymph # (Auto) [place] # (Auto) Absolute Neutrophils ABG Methemoglobin VBG pCO2 VBG pO2 VBG HCO3 VBG Total CO2 VBG O2 Saturation VBG Base Excess VBG Lactic Acid 3.4 H Carboxyhemoglobin Total Hemoglobin Carbon Dioxide Anion Gap Creatinine Calcium Phosphorus Magnesium Direct Bilirubin GGT AST ALT Alkaline Phosphatase Lactate Dehydrogenase C-Reactive Protein Total Protein Albumin Procalcitonin Urine Appearance Cloudy A Urine Protein 100 A Urine WBC 5 H Amorphous Crystals Few A Hyaline Casts 22 H Urine Mucus Many A Ur Amphetamines Screen Suspect positive A U Marijuana (THC) Screen Suspect positive A Ethyl Alcohol 05/04/20 05/04/20 05/04/20 22:11 22:11 22:11 WBC Hgb Hct RDW Neut % (Auto) Lymph % (Auto) [place] % (Auto) Lymph # (Auto) [place] # (Auto) Absolute Neutrophils ABG Methemoglobin 0.3 L VBG pCO2 37.8 L VBG pO2 53.0 H VBG HCO3 21.3 L VBG Total CO2 22.4 L VBG O2 Saturation 82.1 H VBG Base Excess -4 L VBG Lactic Acid Carboxyhemoglobin 5.2 H Total Hemoglobin 12.4 L Carbon Dioxide Anion Gap Creatinine Calcium Phosphorus Magnesium Direct Bilirubin GGT AST ALT Alkaline Phosphatase Lactate Dehydrogenase C-Reactive Protein 1.40 H Total Protein Albumin Procalcitonin 79.04 H Urine Appearance Urine Protein Urine WBC Amorphous Crystals Hyaline Casts Urine Mucus Ur Amphetamines Screen U Marijuana (THC) Screen Ethyl Alcohol 05/04/20 05/04/20 05/04/20 19:56 19:56 19:06 WBC Hgb Hct RDW Neut % (Auto) Lymph % (Auto) [place] % (Auto) Lymph # (Auto) [place] # (Auto) Absolute Neutrophils ABG Methemoglobin VBG pCO2 VBG pO2 VBG HCO3 VBG Total CO2 VBG O2 Saturation VBG Base Excess VBG Lactic Acid 4.4 H* Carboxyhemoglobin Total Hemoglobin Carbon Dioxide Anion Gap 17.0 H Creatinine 1.5 H Calcium Phosphorus Magnesium Direct Bilirubin GGT AST 177 H ALT 91 H Alkaline Phosphatase 153 H Lactate Dehydrogenase C-Reactive Protein Total Protein Albumin Procalcitonin Urine Appearance Urine Protein Urine WBC Amorphous Crystals Hyaline Casts Urine Mucus Ur Amphetamines Screen U Marijuana (THC) Screen Ethyl Alcohol 0.010 H 05/04/20 19:06 WBC Hgb Hct RDW Neut % (Auto) 91.5 H Lymph % (Auto) 6.9 L [place] % (Auto) 0.4 L Lymph # (Auto) 0.37 L [place] # (Auto) 0.02 L Absolute Neutrophils ABG Methemoglobin VBG pCO2 VBG pO2 VBG HCO3 VBG Total CO2 VBG O2 Saturation VBG Base Excess VBG Lactic Acid Carboxyhemoglobin Total Hemoglobin Carbon Dioxide Anion Gap Creatinine Calcium Phosphorus Magnesium Direct Bilirubin GGT AST ALT Alkaline Phosphatase Lactate Dehydrogenase C-Reactive Protein Total Protein Albumin Procalcitonin Urine Appearance Urine Protein Urine WBC Amorphous Crystals Hyaline Casts Urine Mucus Ur Amphetamines Screen U Marijuana (THC) Screen Ethyl Alcohol Meds: Medications Acetaminophen (Tylenol) 650 mg PO Q4-6HP PRN; Protocol PRN Reason: Per Pain Protocol/Fever > 101 Bisacodyl (Dulcolax) 10 mg SD Q2-3DAYS PRN PRN Reason: Constipation Docusate Sodium (Colace) 100 mg PO BID [facility] Last Admin: 05/05/20 11:55 Dose: 100 mg Documented by: Heparin Sodium (Porcine) (Heparin) 5,000 unit SQ Q12 [facility] Last Admin: 05/05/20 11:55 Dose: 5,000 unit Documented by: Sodium Chloride (Sodium Chloride 0.9%) 250 mls @ 20 mls/hr IV .[id number] [facility] Last Admin: 05/05/20 00:54 Dose: 20 mls/hr Documented by: Sodium Chloride (Sodium Chloride 0.9%) 1,000 mls @ 0 mls/hr IV BOLUS [facility] Last Admin: 05/05/20 00:54 Dose: 999 mls/hr Documented by: Potassium Chloride 40 meq/ (Dextrose) 520 mls @ 130 mls/hr IV UD PRN PRN Reason: K+ = or < 3.5 Acetaminophen (Ofirmev) 650 mg in 65 mls @ 130 mls/hr IV Q6HP PRN; Protocol PRN Reason: Per Pain Protocol/Fever > 101 Last Admin: 05/05/20 11:56 Dose: 130 mls/hr Documented by: Magnesium Sulfate (Magnesium Sulfate) 2 gm in 50 mls @ 50 mls/hr IV UD PRN PRN Reason: MG = or < 1.7 Last Admin: 05/05/20 10:46 Dose: 50 mls/hr Documented by: Sodium Chloride (Sodium Chloride 0.9%) 1,000 mls @ 100 mls/hr IV .Q10H [facility] Last Admin: 05/05/20 01:41 Dose: 100 mls/hr Documented by: Piperacillin Sod/Tazobactam (Sod 3.375 gm/ Dextrose) 50 mls @ 100 mls/hr IV Q6H [facility]; Protocol Last Admin: 05/05/20 11:54 Dose: 100 mls/hr Documented by: Norepinephrine Bitartrate 8 mg (/ Sodium Chloride) 250 mls @ 18.75 mls/hr IV Q14H [facility]; Protocol Last Admin: 05/05/20 00:55 Dose: Not Given Documented by: Vancomycin HCl 1,000 mg/ (Sodium Chloride) 250 mls @ 250 mls/hr IV Q8H [facility] Melatonin (Melatonin 3mg Tablet) 3 mg PO HSP PRN PRN Reason: Insomnia Ondansetron HCl (Zofran Odt) 4 mg SL Q4-6HP PRN; Protocol PRN Reason: Nausea And Vomiting Ondansetron HCl (Zofran) 4 mg IV Q4-6HP PRN; Protocol PRN Reason: Nausea And Vomiting Polyethylene Glycol (Miralax) 17 gm PO DAILYP PRN PRN Reason: Constipation Potassium Chloride (Klor-Con) 40 meq PO DAILYP PRN PRN Reason: K+ < 3.5 Senna/Docusate Sodium (Senna Plus Tablet) 1 tab PO HS [facility] Sodium Chloride (Saline Flush) 10 ml IV Q8 [facility] Last Admin: 05/05/20 06:20 Dose: 10 ml Documented by: Sodium Chloride (Saline Flush) 10 ml IV Q12 [facility] Sodium Chloride (Saline Flush) 10 ml IV UD PRN PRN Reason: FLUSH Last Admin: 05/05/20 11:57 Dose: 10 ml Documented by: Vancomycin HCl (Vancomycin Per Pharmacy) 1 order IV UD [facility]; Protocol ABG Interpretation ABG results: 05/04/20 22:11 ABG Methemoglobin 0.3 L VBG pH 7.37 VBG pCO2 37.8 L VBG pO2 53.0 H VBG HCO3 21.3 L VBG Total CO2 22.4 L VBG O2 Saturation 82.1 H VBG Base Excess -4 L A/P Assessment and plan (1) Knee effusion, left: Status: Acute Narrative A/P Narrative: * Septic shock-elevated lactate/fever/tachycardia tachypnea with multiple endorgan dysfunction. Pancultures/antibiotic coverage. Broad-spectrum an tibiotics/vasopressors/crystalloids/venous lactate trending. Rule out infect endocarditis/bacteremia/intra-abdominal abscess as a source * Leukemoid reaction, high likelihood bacteremia/intra-abdominal abscess. CT chest pelvis abdomen to rule out an acute process. * Acute renal failure creatinine worsened to 1.8. Secondary to septic shock. Discussed with nephrology. Benefits of using contrast for further evaluation of leukemoid reaction/septic shock far exceeds the risk of deteriorating renal function. Continue crystalloids * Elevated LFTs early shock liver. Stable. * Anion gap lactic acidosis -secondary to severe sepsis and endorgan dysfunction * Left knee swelling status post arthrocentesis. White count 6400. Unlikely septic joint. * Injection drug use-counseled for cessation, Case management to coordinate rehab resources/outpatient substance abuse detoxification program * Full code Plan * Continue vasopressors/antibiotics * Central venous access * Nephrology consult if worsening renal function * Aggressive crystalloids * CT chest abdomen pelvis * Await echocardiogram results * Blood cultures Patient remains critically ill. [place] 2 score 20 with multiple endorgan dysfunction. Continue ICU care. Critical time spent in excess of 45 minutes Time Spent With Patient Time: Total time spent is greater than 50% in coordination of care (as documented) at patient's floor/unit and/or counseling patient:
[2020-05-05] MEDS ORDERED: IOPAMIDOL 100 ML BOTTLE IV ONE (14:17)
--- NOTE | 2020-05-05 14:50 | Cat Scan Report ---
History: Septic shock, leukemoid reaction, meth overdose TECHNIQUE: following injection of 60 cc nonionic contrast, images were acquired during the portal venous phase from the thoracic inlet to the symphysis pubis. Sagittal and coronal reformats are created. The radiation exposure was limited using dose reduction technology. FINDINGS: CHEST: There is subtle centrilobular emphysema and both lung apices. There is consolidation in the periphery of the posterior basal segments of both lower lobes. Adjacent to this there are tiny bilateral pleural effusions. Subtle nonspecific alveolar opacity is present above the minor fissure in the right upper lobe, best seen on axial image #69. There are bands of discoid atelectasis anteriorly in the superior segments of both lower lobes. In the right hilum there are a couple mildly enlarged lymph nodes. The largest measures 1.7 cm. Largest lymph node in the left hilum is approximately 8mm. In the mediastinum the largest lymph node is 1 x 1.1 cm and located in the pretracheal retrocaval space. The heart is normal in size and contour. No pericardial effusion is present. There is a right internal jugular catheter located in the superior vena cava. Abdomen and pelvis: The liver is normal in size but heterogeneous. There is mild periportal edema. No liver abscess or mass are seen. The spleen is normal in size and homogeneous. There is moderate edema in the gallbladder wall. The gallbladder is partially contracted. There are no stones within the lumen. The bile ducts are nondilated. No ascites is present. There is no abscess within the abdomen or pelvis. The pancreas is normal without evidence of inflammation or mass. The adrenals are normal. The kidneys are normal in size shape and contour and there is no evidence of kidney stone, pyelonephritis or hydronephrosis. There is a solitary dilated segment of jejunum in the left upper quadrant which measures 4.5 cm in transverse dimension. The wall of this distended segment does not appear to be thickened or inflamed. Proximal and distal to this, the small intestine is normal in caliber. There is moderate amount stool colon with fecal impaction in the distal sigmoid and rectum. Alatorre catheter is placed in the urinary bladder. Prostate and seminal vesicles are relatively small. No adenopathy is seen within the abdomen or pelvis and there is no ascites. Bone windows show no evidence of osteomyelitis or discitis.. IMPRESSION: Mildly heterogeneous liver with periportal edema. This may be seen with hepatitis and shock liver. Diffuse edema of the gallbladder wall. This is nonspecific but may also be seen with acute hepatitis. Low serum albumin, AIDS and acute cholecystitis are also in the differential. Focal dilated segment of jejunum in the left upper quadrant. This is nonspecific but may be due to enteritis. Mild atelectasis in both lower lobes and subtle alveolar infiltrate in the right upper lobe above the minor fissure Tiny bilateral pleural effusions Hilar adenopathy Dr. Cordova was called with the results Interpreted and Authenticated by: Darvin Pimentel 05/05/20
[2020-05-05] MEDS: VANCOMYCIN 1,000 MG in 0.9 % SODIUM CHLORIDE 250 ML IV SCH ×2 (15:43→23:07)
[2020-05-05] MEDS: SENNOSIDES/DOCUSATE SODIUM 1 TAB TABLET PO SCH (20:36)
[2020-05-05] MEDS: MELATONIN 3 MG TABLET PO PRN (23:17)
[2020-05-06] MEDS: PIPERACILLIN SODIUM/TAZOBACTAM 3.375 GM in DEXTROSE 5% IN WATER 50 ML IV SCH ×4 (00:03→17:30)
[2020-05-06] MEDS: 0.9 % SODIUM CHLORIDE 1,000 ML IV SCH ×3 (00:05→12:53)
[2020-05-06] MEDS: 0.9 % SODIUM CHLORIDE 250 ML IV SCH ×2 (00:06→12:40)
[2020-05-06] MEDS: NOREPINEPHRINE BITARTRATE 8 MG in 0.9 % SODIUM CHLORIDE 242 ML IV SCH ×2 (00:15→00:16)
[2020-05-06] MEDS: 0.9 % SODIUM CHLORIDE 10 ML SYRINGE IV SCH ×5 (05:40→21:01)
[2020-05-06 07:13] LABS: Basophils # (Auto) 0.14 K/mcL (0.00-0.20); Basophils % (Auto) 0.4 % (0.0-2.0); Eosinophils # (Auto) 0.35 K/mcL (0.00-0.70); Eosinophils % (Auto) 0.9 % (0.0-7.0); Hematocrit 35.5 % (41.0-55.0); Hemoglobin 11.5 g/dL (13.5-16.5); Lymphocytes # (Auto) 2.14 K/mcL (1.50-4.80); Lymphocytes % (Auto) 5.7 % (15.0-49.0); Mean Cell Volume 82.9 fL (80.0-100.0); Mean Corpuscular HGB Conc 32.4 g/dL (31.0-36.0); Mean Platelet Volume 8.9 fL (7.4-10.4); Monocytes % (Auto) 5.9 % (1.0-12.0); Neutrophils % (Auto) 87.1 % (38.0-78.0); Platelet Count 226 K/mcL (140-440); RBC 4.28 M/mcL (4.50-5.90); Red Cell Distribution Width 14.9 % (11.5-14.5); WBC 37.5 K/mcL (4.5-11.0)
[2020-05-06 07:31] LABS: ALT/SGPT 68 U/L (<40); AST/SGOT 56 U/L (<40); Albumin 2.6 gm/dL (3.2-5.2); Albumin/Globulin Ratio 0.9 (1.0-2.3); Alkaline Phosphatase 142 U/L (39-117); Bilirubin,Direct 0.2 mg/dL (<0.3); Bilirubin,Total 0.5 mg/dL (0.1-1.0); Blood Urea Nitrogen 15 mg/dL (6-20); Calcium 7.8 mg/dL (8.6-10.4); Carbon Dioxide 21 mmol/L (22-30); Chloride 106 mmol/L (96-108); Globulin 2.8 gm/dL (2.2-3.7); Glomerular Filtration Rate 95; Glucose 60 mg/dL (70-105); Lactate Dehydrogenase 250 U/L (135-225); Phosphorous 2.5 mg/dL (2.5-4.5); Triglycerides 54 mg/dL (<150); Uric Acid 2.8 mg/dL (2.5-8.0)
[2020-05-06] MEDS: VANCOMYCIN 1,000 MG in 0.9 % SODIUM CHLORIDE 250 ML IV SCH ×3 (07:44→23:00)
[2020-05-06] MEDS: ACETAMINOPHEN 325 MG TABLET PO PRN ×2 (07:55→23:11)
--- NOTE | 2020-05-06 09:28 | XRay Report ---
HISTORY: Sepsis and meth overdose FINDINGS: There are mild bibasilar alveolar infiltrates, right worse than left. These have enlarged compared with prior x-ray done on 05/05/20. There is no pleural effusion. The heart size normal. Right internal jugular line remains well-positioned in the superior vena cava. There is no widening of the mediastinum or pneumothorax. IMPRESSION: Mild but worsening bibasilar pneumonia Interpreted and Authenticated by: Darvin Pimentel 05/06/20
[2020-05-06] MEDS: 0.9 % SODIUM CHLORIDE 10 ML SYRINGE IV PRN ×2 (09:50→09:52)
[2020-05-06] MEDS: DOCUSATE SODIUM 100 MG CAPSULE PO SCH ×2 (09:51→21:00)
[2020-05-06] MEDS: HEPARIN 5,000 UNIT/ML VIAL SQ SCH ×2 (09:52→21:00)
[2020-05-06] MEDS ORDERED: FLU VACC QS2020-21(6MOS UP)/PF 60 MCG/0.5 ML SYRINGE IM ONE (10:00)
--- NOTE | 2020-05-06 12:59 | Internal Med Progress Note ---
SUBJECTIVE Subjective Patient information: Note initiated : 05/06/20 at 12:53 pm Service Date, if different from initiated Date: [] Patient: Aime De La Fuente 40 y/o M admitted on 05/04/20 for over dose of meth. 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 Patient missed going to work for over a week however did not seek medical help. He complains of associated poor appetite but denies dysuria, diarrhea, skin rash, hematuria cough. He also denies sick contacts. Patient does complains of lower back pain/left knee swelling/weakness left leg but denies diplopia/draining skin lesions. He is extremely anxious and fidgety He is a regular injection drug use methamphetamine and last used an hour and a half prior to presentation patient his friend helped him inject external jugular vein. Initial work-up in the ER was consistent with septic shock with systolics in 80s with tachycardia 140/tachypnea 35/hypoxia requiring 4 L oxygen and a fever of 102.5. Patient received 5 L of crystalloid bolus started on pressors. Cultures were drawn and antibiotics initiated. Lactic acid 4.4/creatinine 1.5/elevated LFTs consistent with multiple endorgan dysfunction Subsequently hospitalist service was consulted for admission and management of septic shock from unclear source. Likely bacteremia from injection drug use 05/05-patient critically ill and septic shock requiring pressors. Status post 7 discussed lines. Echocardiogram completed. White count at 35,000 indicative leukemoid reaction. Cultures negative so far. On broad-spectrum antibiotic coverage. Improving urine output. Lactate downtrending. Creatinine up from 1.5-1.8 however urine output more than 40 cc an hour. Magnesium 1.4, phosphorus 2.2, urine drug screen positive for meth/marijuana, Covid PCR pending, left knee joint fluid aspirate 6000 white cell. Central line secured. Procalcitonin 79. 05/06-patient feels a lot better. White count 37.5. CT abdomen chest and pel vis no evidence of acute process or abscess. Cultures negative so far. Echocardiogram no evidence of valvular vegetation. Low probability endocarditis due to normal ESR/absent Osler nodes/splinter hemorrhage. Improve renal function creatinine down to 1. Weaning pressors now at 3 mics Levophed. Frequent PVCs noted on telemetry. X-ray chest worsening bibasilar pneumonia. Continuing antibiotic coverage, discontinue IV fluids Constitutional Vitals: Vital Signs Temp Pulse Resp BP Pulse Ox 98.8 F 71 16 106/71 98 05/06/20 12:01 05/06/20 12:10 05/06/20 12:10 05/06/20 12:01 05/06/20 12:10 Period Temp Pulse Resp BP Sys/Rodriguez Pulse Ox Last 24 Hr 98.5 F-99.4 F 30-106 9-34 70-198/41-116 61-100 Intake and Output 05/05/20 05/06/20 05/06/20 21:59 05:59 13:59 Intake Total 3454 1031 1420 Output Total 1230 3545 1790 Balance 2224 -2514 -370 Weight 95.527 kg Improved hemodynamics On Levophed 3 mics Telemetry occasional PVCs/short pauses for 2.5 seconds. Tachycardia resolved Laatorre draining clear urine Feels a lot better Intake & Output: Intake & Output 05/05/20 05/06/20 05/06/20 21:59 05:59 13:59 Intake Total 3454 1031 1420 Output Total 1230 3545 1790 Balance 2224 -2514 -370 Weight 95.527 kg Intake: IV 2004 1031 300 Sodium Chloride 0.9% 1,000 ml @ 1660 348 100 mls/hr IV .Q10H [facility] Rx#: [id number] Sodium Chloride 0.9% 250 ml @ 250 20 mls/hr IV .[id number] [facility] Rx#: [id number] Levophed 8 mg In Sodium 44 133 Chloride 0.9% 242 ml @ 10 MCG/ MIN 18.75 mls/hr IV Q14H [facility] Rx #:[id number] Zosyn 3.375 gm In Dextrose 5% 50 50 50 in Water 50 ml @ 100 mls/hr IV Q6H [facility] Rx#:[id number] Vancomycin 1,000 mg In Sodium 250 250 250 Chloride 0.9% 250 ml @ 250 mls/ hr IV Q8H [facility] Rx#:[id number] Oral 1450 1120 Output: Urine Catheter Amount 1230 3545 1790 Other: Meal Dinner Lunch Percent of Meal Consumed 75% 25% Feeding Ability Independent Urine Appearance Clear Clear Clear Uretheral (Alatorre) Clear Urine Color Pale Pale Pale Uretheral (Alatorre) Bright Yellow Stool Size Copious Stool Color Brown Stool Consistency Dry and Hard Liquid OBJ DATA Labs CBC & Chem 7: 05/06/20 05:12 05/06/20 05:12 Labs: Abnormal Lab Results 05/06/20 05/06/20 05/05/20 05:12 05:12 05:43 WBC 37.5 H* RBC 4.28 L Hgb 11.5 L Hct 35.5 L RDW 14.9 H Neut % (Auto) 87.1 H Lymph % (Auto) 5.7 L [place] % (Auto) Lymph # (Auto) [place] # (Auto) 2.20 H Absolute Neutrophils 32.71 H ABG Methemoglobin VBG pCO2 VBG pO2 VBG HCO3 VBG Total CO2 VBG O2 Saturation VBG Base Excess VBG Lactic Acid 3.5 H Carboxyhemoglobin Total Hemoglobin Carbon Dioxide 21 L Anion Gap Creatinine Glucose 60 L Calcium 7.8 L Phosphorus Magnesium Direct Bilirubin GGT 142 H AST 56 H ALT 68 H Alkaline Phosphatase 142 H Lactate Dehydrogenase 250 H C-Reactive Protein Total Protein 5.4 L Albumin 2.6 L Albumin/Globulin Ratio 0.9 L Procalcitonin Urine Appearance Urine Protein Urine WBC Amorphous Crystals Hyaline Casts Urine Mucus Ur Amphetamines Screen U Marijuana (THC) Screen Ethyl Alcohol 05/05/20 05/05/20 05/05/20 05:43 05:43 01:20 WBC 35.5 H* RBC Hgb 12.5 L Hct 39.5 L RDW 14.6 H Neut % (Auto) 93.5 H Lymph % (Auto) 2.3 L [place] % (Auto) Lymph # (Auto) 0.82 L [place] # (Auto) 1.27 H Absolute Neutrophils 33.18 H ABG Methemoglobin VBG pCO2 VBG pO2 VBG HCO3 VBG Total CO2 VBG O2 Saturation VBG Base Excess VBG Lactic Acid Carboxyhemoglobin Total Hemoglobin Carbon Dioxide 21 L Anion Gap Creatinine 1.8 H Glucose Calcium 7.5 L Phosphorus 2.2 L Magnesium 1.4 L Direct Bilirubin 0.3 H GGT 184 H AST 144 H ALT 107 H Alkaline Phosphatase 127 H Lactate Dehydrogenase 357 H C-Reactive Protein Total Protein 5.7 L Albumin 2.8 L Albumin/Globulin Ratio Procalcitonin Urine Appearance Cloudy A Urine Protein 100 A Urine WBC 5 H Amorphous Crystals Few A Hyaline Casts 22 H Urine Mucus Many A Ur Amphetamines Screen U Marijuana (THC) Screen Ethyl Alcohol 05/05/20 05/05/20 05/04/20 01:16 00:15 22:11 WBC RBC Hgb Hct RDW Neut % (Auto) Lymph % (Auto) [place] % (Auto) Lymph # (Auto) [place] # (Auto) Absolute Neutrophils ABG Methemoglobin 0.3 L VBG pCO2 37.8 L VBG pO2 53.0 H VBG HCO3 21.3 L VBG Total CO2 22.4 L VBG O2 Saturation 82.1 H VBG Base Excess -4 L VBG Lactic Acid 3.4 H Carboxyhemoglobin 5.2 H Total Hemoglobin 12.4 L Carbon Dioxide Anion Gap Creatinine Glucose Calcium Phosphorus Magnesium Direct Bilirubin GGT AST ALT Alkaline Phosphatase Lactate Dehydrogenase C-Reactive Protein Total Protein Albumin Albumin/Globulin Ratio Procalcitonin Urine Appearance Urine Protein Urine WBC Amorphous Crystals Hyaline Casts Urine Mucus Ur Amphetamines Screen Suspect positive A U Marijuana (THC) Screen Suspect positive A Ethyl Alcohol 05/04/20 05/04/20 05/04/20 22:11 22:11 19:56 WBC RBC Hgb Hct RDW Neut % (Auto) Lymph % (Auto) [place] % (Auto) Lymph # (Auto) [place] # (Auto) Absolute Neutrophils ABG Methemoglobin VBG pCO2 VBG pO2 VBG HCO3 VBG Total CO2 VBG O2 Saturation VBG Base Excess VBG Lactic Acid Carboxyhemoglobin Total Hemoglobin Carbon Dioxide Anion Gap 17.0 H Creatinine 1.5 H Glucose Calcium Phosphorus Magnesium Direct Bilirubin GGT AST 177 H ALT 91 H Alkaline Phosphatase 153 H Lactate Dehydrogenase C-Reactive Protein 1.40 H Total Protein Albumin Albumin/Globulin Ratio Procalcitonin 79.04 H Urine Appearance Urine Protein Urine WBC Amorphous Crystals Hyaline Casts Urine Mucus Ur Amphetamines Screen U Marijuana (THC) Screen Ethyl Alcohol 05/04/20 05/04/20 05/04/20 19:56 19:06 19:06 WBC RBC Hgb Hct RDW Neut % (Auto) 91.5 H Lymph % (Auto) 6.9 L [place] % (Auto) 0.4 L Lymph # (Auto) 0.37 L [place] # (Auto) 0.02 L Absolute Neutrophils ABG Methemoglobin VBG pCO2 VBG pO2 VBG HCO3 VBG Total CO2 VBG O2 Saturation VBG Base Excess VBG Lactic Acid 4.4 H* Carboxyhemoglobin Total Hemoglobin Carbon Dioxide Anion Gap Creatinine Glucose Calcium Phosphorus Magnesium Direct Bilirubin GGT AST ALT Alkaline Phosphatase Lactate Dehydrogenase C-Reactive Protein Total Protein Albumin Albumin/Globulin Ratio Procalcitonin Urine Appearance Urine Protein Urine WBC Amorphous Crystals Hyaline Casts Urine Mucus Ur Amphetamines Screen U Marijuana (THC) Screen Ethyl Alcohol 0.010 H Meds: Medications Acetaminophen (Tylenol) 650 mg PO Q4-6HP PRN; Protocol PRN Reason: Per Pain Protocol/Fever > 101 Last Admin: 05/06/20 07:55 Dose: 650 mg Documented by: Bisacodyl (Dulcolax) 10 mg DC Q2-3DAYS PRN PRN Reason: Constipation Docusate Sodium (Colace) 100 mg PO BID [facility] Last Admin: 05/06/20 09:51 Dose: Not Given Documented by: Heparin Sodium (Porcine) (Heparin) 5,000 unit SQ Q12 [facility] Last Admin: 05/06/20 09:52 Dose: 5,000 unit Documented by: Sodium Chloride (Sodium Chloride 0.9%) 250 mls @ 20 mls/hr IV .[id number] [facility] Last Admin: 05/06/20 00:06 Dose: 20 mls/hr Documented by: Sodium Chloride (Sodium Chloride 0.9%) 1,000 mls @ 0 mls/hr IV BOLUS [facility] Last Admin: 05/05/20 22:08 Dose: Not Given Documented by: Potassium Chloride 40 meq/ (Dextrose) 520 mls @ 130 mls/hr IV UD PRN PRN Reason: K+ = or < 3.5 Acetaminophen (Ofirmev) 650 mg in 65 mls @ 130 mls/hr IV Q6HP PRN; Protocol PRN Reason: Per Pain Protocol/Fever > 101 Last Infusion: 05/05/20 12:26 Dose: Infused Documented by: Magnesium Sulfate (Magnesium Sulfate) 2 gm in 50 mls @ 50 mls/hr IV UD PRN PRN Reason: MG = or < 1.7 Last Infusion: 05/05/20 11:46 Dose: Infused Documented by: Sodium Chloride (Sodium Chloride 0.9%) 1,000 mls @ 100 mls/hr IV .Q10H [facility] Last Admin: 05/06/20 05:39 Dose: Not Given Documented by: Piperacillin Sod/Tazobactam (Sod 3.375 gm/ Dextrose) 50 mls @ 100 mls/hr IV Q6H [facility]; Protocol Last Admin: 05/06/20 11:53 Dose: 100 mls/hr Documented by: Norepinephrine Bitartrate 8 mg (/ Sodium Chloride) 250 mls @ 18.75 mls/hr IV Q14H [facility]; Protocol Last Titration: 05/06/20 00:27 Dose: 3 mcg/min, 5.625 mls/hr Documented by: Vancomycin HCl 1,000 mg/ (Sodium Chloride) 250 mls @ 250 mls/hr IV Q8H [facility] Last Infusion: 05/06/20 08:44 Dose: Infused Documented by: Melatonin (Melatonin 3mg Tablet) 3 mg PO HSP PRN PRN Reason: Insomnia Last Admin: 05/05/20 23:17 Dose: 3 mg Documented by: Ondansetron HCl (Zofran Odt) 4 mg SL Q4-6HP PRN; Protocol PRN Reason: Nausea And Vomiting Ondansetron HCl (Zofran) 4 mg IV Q4-6HP PRN; Protocol PRN Reason: Nausea And Vomiting Polyethylene Glycol (Miralax) 17 gm PO DAILYP PRN PRN Reason: Constipation Potassium Chloride (Klor-Con) 40 meq PO DAILYP PRN PRN Reason: K+ < 3.5 Senna/Docusate Sodium (Senna Plus Tablet) 1 tab PO HS [facility] Last Admin: 05/05/20 20:36 Dose: 1 tab Documented by: Sodium Chloride (Saline Flush) 10 ml IV Q8 [facility] Last Admin: 05/06/20 05:40 Dose: 10 ml Documented by: Sodium Chloride (Saline Flush) 10 ml IV Q12 [facility] Last Admin: 05/06/20 09:53 Dose: Not Given Documented by: Sodium Chloride (Saline Flush) 10 ml IV UD PRN PRN Reason: FLUSH Last Admin: 05/06/20 09:52 Dose: 10 ml Documented by: Vancomycin HCl (Vancomycin Per Pharmacy) 1 order IV UD [facility]; Protocol ABG Interpretation ABG results: 05/04/20 22:11 ABG Methemoglobin 0.3 L VBG pH 7.37 VBG pCO2 37.8 L VBG pO2 53.0 H VBG HCO3 21.3 L VBG Total CO2 22.4 L VBG O2 Saturation 82.1 H VBG Base Excess -4 L A/P Assessment and plan (1) Knee effusion, left: Status: Acute Narrative A/P Narrative: * Septic shock-elevated lactate/fever/tachycardia tachypnea with multiple endorgan dysfunction. Negative pancultures/continuing antibiotic coverage. * Early leukemoid reaction- White count of 37.5. Negative CT chest abdomen pelvis for acute process * Bibasilar pneumonia on antibiotic coverage. * Acute renal failure creatinine -creatinine improved from 1.8-1. Likely manifestation of septic shock. * Elevated LFTs early shock liver. Resolved. * Anion gap lactic acidosis -resolved with normalization of lactic acid * Left knee swelling status post arthrocentesis. White count 6400. Unlikely se ptic joint. Knee pain much improved * Injection drug use-counseled for cessation, Case management to coordinate rehab resources/outpatient substance abuse detoxification program * Full code Plan * Wean pressors, continue antibiotics * Lower maintenance fluids * Early mobilization * If persistent leukocytosis will consider transfer to tertiary center for further evaluation and management Critical care time spent over 35 minutes Time Spent With Patient Time: Total time spent is greater than 50% in coordination of care (as documented) at patient's floor/unit and/or counseling patient:
[2020-05-06] MEDS ORDERED: 0.9 % SODIUM CHLORIDE 1,000 ML IV SCH (14:00)
[2020-05-06] MEDS ORDERED: NOREPINEPHRINE BITARTRATE 8 MG in 0.9 % SODIUM CHLORIDE 242 ML IV SCH (17:00)
[2020-05-06] MEDS: SENNOSIDES/DOCUSATE SODIUM 1 TAB TABLET PO SCH (21:00)
[2020-05-06] MEDS: MELATONIN 3 MG TABLET PO PRN (23:12)
[2020-05-07] MEDS: PIPERACILLIN SODIUM/TAZOBACTAM 3.375 GM in DEXTROSE 5% IN WATER 50 ML IV SCH ×5 (01:01→23:56)
[2020-05-07] MEDS: 0.9 % SODIUM CHLORIDE 1,000 ML IV SCH (01:58)
[2020-05-07] MEDS: 0.9 % SODIUM CHLORIDE 250 ML IV SCH (01:59)
[2020-05-07] MEDS: 0.9 % SODIUM CHLORIDE 10 ML SYRINGE IV SCH ×5 (05:23→23:28)
[2020-05-07 07:02] LABS: Basophils # (Auto) 0.09 K/mcL (0.00-0.20); Basophils % (Auto) 0.3 % (0.0-2.0); Eosinophils # (Auto) 1.29 K/mcL (0.00-0.70); Eosinophils % (Auto) 4.8 % (0.0-7.0); Hematocrit 35.7 % (41.0-55.0); Hemoglobin 11.5 g/dL (13.5-16.5); Lymphocytes # (Auto) 2.13 K/mcL (1.50-4.80); Lymphocytes % (Auto) 7.9 % (15.0-49.0); Mean Cell Volume 82.4 fL (80.0-100.0); Mean Corpuscular HGB Conc 32.2 g/dL (31.0-36.0); Mean Platelet Volume 9.2 fL (7.4-10.4); Monocytes % (Auto) 4.1 % (1.0-12.0); Neutrophils % (Auto) 82.9 % (38.0-78.0); Platelet Count 213 K/mcL (140-440); RBC 4.33 M/mcL (4.50-5.90); Red Cell Distribution Width 14.3 % (11.5-14.5); WBC 26.8 K/mcL (4.5-11.0)
[2020-05-07] MEDS: VANCOMYCIN 1,000 MG in 0.9 % SODIUM CHLORIDE 250 ML IV SCH ×3 (07:19→23:28)
[2020-05-07 07:34] LABS: ALT/SGPT 54 U/L (<40); AST/SGOT 34 U/L (<40); Albumin 2.7 gm/dL (3.2-5.2); Albumin/Globulin Ratio 0.8 (1.0-2.3); Alkaline Phosphatase 166 U/L (39-117); Bilirubin,Direct < 0.2 mg/dL (<0.3); Bilirubin,Total 0.4 mg/dL (0.1-1.0); Blood Urea Nitrogen 9 mg/dL (6-20); Carbon Dioxide 22 mmol/L (22-30); Chloride 107 mmol/L (96-108); Globulin 3.2 gm/dL (2.2-3.7); Glomerular Filtration Rate 108; Glucose 53 mg/dL (70-105); Lactate Dehydrogenase 241 U/L (135-225); Phosphorous 2.5 mg/dL (2.5-4.5); Triglycerides 90 mg/dL (<150); Uric Acid 2.2 mg/dL (2.5-8.0)
[2020-05-07] MEDS: HEPARIN 5,000 UNIT/ML VIAL SQ SCH ×2 (08:37→21:50)
[2020-05-07] MEDS: DOCUSATE SODIUM 100 MG CAPSULE PO SCH ×2 (08:37→22:24)
[2020-05-07] MEDS ORDERED: ACETAMINOPHEN 325 MG TABLET PO PRN (12:07)
[2020-05-07] MEDS ORDERED: POTASSIUM CHLORIDE 20 MEQ PACKET PO PRN (12:07)
[2020-05-07] MEDS ORDERED: 0.9 % SODIUM CHLORIDE 10 ML SYRINGE IV PRN (12:07)
[2020-05-07] MEDS ORDERED: ACETAMINOPHEN 650 MG/65 ML BAG IV PRN (12:07)
[2020-05-07] MEDS ORDERED: IOPAMIDOL 100 ML BOTTLE IV ONE (12:07)
[2020-05-07] MEDS ORDERED: ONDANSETRON 4 MG/2 ML VIAL IV PRN (12:07)
[2020-05-07] MEDS ORDERED: POTASSIUM CHLORIDE 40 MEQ in DEXTROSE 5% IN WATER 500 ML IV PRN (12:07)
[2020-05-07] MEDS ORDERED: MAGNESIUM SULFATE 2 GM/50 ML BAG IV PRN (12:07)
[2020-05-07] MEDS ORDERED: VANCOMYCIN PER PHARMACY IV SCH (12:07)
[2020-05-07] MEDS ORDERED: BISACODYL 10 MG SUPP.RECT PR PRN (12:07)
[2020-05-07] MEDS ORDERED: POLYETHYLENE GLYCOL 3350 17 GM PACKET PO PRN (12:07)
[2020-05-07] MEDS ORDERED: ONDANSETRON 4 MG ODT TABLET SL PRN (12:07)
[2020-05-07 13:17] LABS: Hepatitis B Surface Antigen Negative (Negative); Hepatitis C Virus Antibody Non-Reactive (Non-Reactive)
[2020-05-07 14:13] LABS: HIV1/2 AG/AB 4TH Generation Non-Reactive (Non-Reactive)
--- NOTE | 2020-05-07 14:54 | XRay Report ---
HISTORY: History: Drug overdose, sepsis, meningismus Procedure: The procedure and risks were explained and the patient consented after patient identification. Crosstable lateral film of the lumbar spine was obtained. This shows the vertebral bodies and disc spaces are normal in height with no degenerative change or bony anomaly. The skin over the lower back was prepped with Betadine and then anesthetized with 1% lidocaine. Using fluoroscopic guidance a 22-gauge needle was inserted into the spinal canal at the L3-4 level. The opening pressure was 9 cm. 10 cc of slightly pink-tinged CSF was removed and sent to laboratory for analysis. He tolerated the procedure well without complication. IMPRESSION: Successful lumbar puncture with normal opening pressure Interpreted and Authenticated by: Darvin Pimentel 05/07/20
[2020-05-07 16:08] LABS: Appearance,CSF Clear; Nucleated Cells,CSF 47 /cumm (0-5); Red Blood Cell,CSF 2433 /cumm (0-1)
[2020-05-07 16:15] LABS: Glucose,CSF 60 mg/dL (40-70)
[2020-05-07 16:45] LABS: Lymphocytes,CSF 55 % (28-96); Monocytes,CSF 9 % (16-56); Neutrophils,CSF 36 % (0-7)
[2020-05-07 16:47] LABS: Appearance,CSF Clear; Lymphocytes,CSF 55 % (28-96); Monocytes,CSF 9 % (16-56); Neutrophils,CSF 36 % (0-7); Nucleated Cells,CSF 47 /cumm (0-5); Red Blood Cell,CSF 2433 /cumm (0-1)
[2020-05-07] MEDS ORDERED: MELATONIN 3 MG TABLET PO PRN (21:00)
[2020-05-07] MEDS ORDERED: SENNOSIDES/DOCUSATE SODIUM 1 TAB TABLET PO SCH (21:00)
--- NOTE | 2020-05-07 22:10 | Internal Med Progress Note ---
SUBJECTIVE Subjective Patient information: Note initiated : 05/07/20 at 10:06 pm Service Date, if different from initiated Date: [] Patient: Aime De La Fuente 40 y/o M admitted on 05/04/20 for over dose of meth. 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 Patient missed going to work for over a week however did not seek medical help. He complains of associated poor appetite but denies dysuria, diarrhea, skin rash, hematuria cough. He also denies sick contacts. Patient does complains of lower back pain/left knee swelling/weakness left leg but denies diplopia/draining skin lesions. He is extremely anxious and fidgety He is a regular injection drug use methamphetamine and last used an hour and a half prior to presentation patient his friend helped him inject external jugular vein. Initial work-up in the ER was consistent with septic shock with systolics in 80s with tachycardia 140/tachypnea 35/hypoxia requiring 4 L oxygen and a fever of 102.5. Patient received 5 L of crystalloid bolus started on pressors. Cultures were drawn and antibiotics initiated. Lactic acid 4.4/creatinine 1.5/elevated LFTs consistent with multiple endorgan dysfunction Subsequently hospitalist service was consulted for admission and management of septic shock from unclear source. Likely bacteremia from injection drug use 05/05-patient critically ill and septic shock requiring pressors. Status post 7 discussed lines. Echocardiogram completed. White count at 35,000 indicative leukemoid reaction. Cultures negative so far. On broad-spectrum antibiotic coverage. Improving urine output. Lactate downtrending. Creatinine up from 1.5-1.8 however urine output more than 40 cc an hour. Magnesium 1.4, phosphorus 2.2, urine drug screen positive for meth/marijuana, Covid PCR pending, left knee joint fluid aspirate 6000 white cell. Central line secured. Procalcitonin 79. 05/06-patient feels a lot better. White count 37.5. CT abdomen chest and pel vis no evidence of acute process or abscess. Cultures negative so far. Echocardiogram no evidence of valvular vegetation. Low probability endocarditis due to normal ESR/absent Osler nodes/splinter hemorrhage. Improve renal function creatinine down to 1. Weaning pressors now at 3 mics Levophed. Frequent PVCs noted on telemetry. X-ray chest worsening bibasilar pneumonia. Continuing antibiotic coverage, discontinue IV fluids 05/07-overnight persistent headache/generalized body ache. Mild photophobia. Lumbar puncture performed today. Normal CSF protein/glucose, semibloody tap. Fever defervesced. Off pressors. Remains afebrile. Symptoms much improved this evening. Headache and neck stiffness resolved. Will likely discharge in 24 hours on oral antibiotics. Constitutional Vitals: Vital Signs Temp Pulse Resp BP Pulse Ox 98.8 F 88 17 94/51 98 05/07/20 20:00 05/07/20 20:00 05/07/20 20:00 05/07/20 20:00 05/07/20 20:00 Period Temp Pulse Resp BP Sys/Rodriguez Pulse Ox Last 24 Hr 97.8 F-99.0 F 49-89 14-21 94-123/51-84 93-100 Intake and Output 05/07/20 05/07/20 05/08/20 13:59 21:59 05:59 Intake Total 710 730 Output Total 1045 1100 Balance -335 -370 Weight 95.906 kg Patient Weight 05/08/20 05:59 Weight 95.906 kg alert oriented Nonlabored breathing Minimal anxiety No telemetry events Intake & Output: Intake & Output 05/07/20 05/07/20 05/08/20 13:59 21:59 05:59 Intake Total 710 730 Output Total 1045 1100 Balance -335 -370 Weight 95.906 kg Intake: IV 350 250 Zosyn 3.375 gm In Dextrose 5% 100 in Water 50 ml @ 100 mls/hr IV Q6H [facility] Rx#:[id number] Vancomycin 1,000 mg In Sodium 250 250 Chloride 0.9% 250 ml @ 250 mls/ hr IV Q8H [facility] Rx#:[id number] Oral 360 480 Output: Urine Catheter Amount 1045 Void Amount 1100 Other: Meal Lunch Dinner Percent of Meal Consumed 0% 50% Feeding Ability Independent Independent Urine Appearance Clear Clear Urine Color Pale Pale Stool Size Large Stool Consistency Loose # Bowel Movements 1 OBJ DATA Labs CBC & Chem 7: 05/07/20 04:08 05/07/20 04:08 Labs: Abnormal Lab Results 05/07/20 05/07/20 05/07/20 14:49 14:49 04:08 WBC RBC Hgb Hct RDW Neut % (Auto) Lymph % (Auto) Lymph # (Auto) [place] # (Auto) Eos # (Auto) Absolute Neutrophils ABG Methemoglobin VBG pCO2 VBG pO2 VBG HCO3 VBG Total CO2 VBG O2 Saturation VBG Base Excess VBG Lactic Acid Carboxyhemoglobin Total Hemoglobin Carbon Dioxide Anion Gap Creatinine Glucose 53 L Uric Acid 2.2 L Calcium 8.0 L Phosphorus Magnesium Direct Bilirubin GGT 141 H AST ALT 54 H Alkaline Phosphatase 166 H Lactate Dehydrogenase 241 H C-Reactive Protein Total Protein Albumin 2.7 L Albumin/Globulin Ratio 0.8 L Procalcitonin Urine Appearance Urine Protein Urine WBC Amorphous Crystals Hyaline Casts Urine Mucus CSF RBC 2433 H 2433 H CSF Total Nucleated Auto 47 H 47 H CSF Neutrophils 36 H 36 H CSF Monocytes 9 L 9 L Ur Amphetamines Screen U Marijuana (THC) Screen 05/07/20 05/06/20 05/06/20 04:08 05:12 05:12 WBC 26.8 H 37.5 H* RBC 4.33 L 4.28 L Hgb 11.5 L 11.5 L Hct 35.7 L 35.5 L RDW 14.9 H Neut % (Auto) 82.9 H 87.1 H Lymph % (Auto) 7.9 L 5.7 L Lymph # (Auto) [place] # (Auto) 1.10 H 2.20 H Eos # (Auto) 1.29 H Absolute Neutrophils 22.21 H 32.71 H ABG Methemoglobin VBG pCO2 VBG pO2 VBG HCO3 VBG Total CO2 VBG O2 Saturation VBG Base Excess VBG Lactic Acid Carboxyhemoglobin Total Hemoglobin Carbon Dioxide 21 L Anion Gap Creatinine Glucose 60 L Uric Acid Calcium 7.8 L Phosphorus Magnesium Direct Bilirubin GGT 142 H AST 56 H ALT 68 H Alkaline Phosphatase 142 H Lactate Dehydrogenase 250 H C-Reactive Protein Total Protein 5.4 L Albumin 2.6 L Albumin/Globulin Ratio 0.9 L Procalcitonin Urine Appearance Urine Protein Urine WBC Amorphous Crystals Hyaline Casts Urine Mucus CSF RBC CSF Total Nucleated Auto CSF Neutrophils CSF Monocytes Ur Amphetamines Screen U Marijuana (THC) Screen 05/05/20 05/05/20 05/05/20 05:43 05:43 05:43 WBC 35.5 H* RBC Hgb 12.5 L Hct 39.5 L RDW 14.6 H Neut % (Auto) 93.5 H Lymph % (Auto) 2.3 L Lymph # (Auto) 0.82 L [place] # (Auto) 1.27 H Eos # (Auto) Absolute Neutrophils 33.18 H ABG Methemoglobin VBG pCO2 VBG pO2 VBG HCO3 VBG Total CO2 VBG O2 Saturation VBG Base Excess VBG Lactic Acid 3.5 H Carboxyhemoglobin Total Hemoglobin Carbon Dioxide 21 L Anion Gap Creatinine 1.8 H Glucose Uric Acid Calcium 7.5 L Phosphorus 2.2 L Magnesium 1.4 L Direct Bilirubin 0.3 H GGT 184 H AST 144 H ALT 107 H Alkaline Phosphatase 127 H Lactate Dehydrogenase 357 H C-Reactive Protein Total Protein 5.7 L Albumin 2.8 L Albumin/Globulin Ratio Procalcitonin Urine Appearance Urine Protein Urine WBC Amorphous Crystals Hyaline Casts Urine Mucus CSF RBC CSF Total Nucleated Auto CSF Neutrophils CSF Monocytes Ur Amphetamines Screen U Marijuana (THC) Screen 05/05/20 05/05/20 05/05/20 01:20 01:16 00:15 WBC RBC Hgb Hct RDW Neut % (Auto) Lymph % (Auto) Lymph # (Auto) [place] # (Auto) Eos # (Auto) Absolute Neutrophils ABG Methemoglobin VBG pCO2 VBG pO2 VBG HCO3 VBG Total CO2 VBG O2 Saturation VBG Base Excess VBG Lactic Acid 3.4 H Carboxyhemoglobin Total Hemoglobin Carbon Dioxide Anion Gap Creatinine Glucose Uric Acid Calcium Phosphorus Magnesium Direct Bilirubin GGT AST ALT Alkaline Phosphatase Lactate Dehydrogenase C-Reactive Protein Total Protein Albumin Albumin/Globulin Ratio Procalcitonin Urine Appearance Cloudy A Urine Protein 100 A Urine WBC 5 H Amorphous Crystals Few A Hyaline Casts 22 H Urine Mucus Many A CSF RBC CSF Total Nucleated Auto CSF Neutrophils CSF Monocytes Ur Amphetamines Screen Suspect positive A U Marijuana (THC) Screen Suspect positive A 05/04/20 05/04/20 05/04/20 22:11 22:11 22:11 WBC RBC Hgb Hct RDW Neut % (Auto) Lymph % (Auto) Lymph # (Auto) [place] # (Auto) Eos # (Auto) Absolute Neutrophils ABG Methemoglobin 0.3 L VBG pCO2 37.8 L VBG pO2 53.0 H VBG HCO3 21.3 L VBG Total CO2 22.4 L VBG O2 Saturation 82.1 H VBG Base Excess -4 L VBG Lactic Acid Carboxyhemoglobin 5.2 H Total Hemoglobin 12.4 L Carbon Dioxide Anion Gap Creatinine Glucose Uric Acid Calcium Phosphorus Magnesium Direct Bilirubin GGT AST ALT Alkaline Phosphatase Lactate Dehydrogenase C-Reactive Protein 1.40 H Total Protein Albumin Albumin/Globulin Ratio Procalcitonin 79.04 H Urine Appearance Urine Protein Urine WBC Amorphous Crystals Hyaline Casts Urine Mucus CSF RBC CSF Total Nucleated Auto CSF Neutrophils CSF Monocytes Ur Amphetamines Screen U Marijuana (THC) Screen 05/04/20 19:56 WBC RBC Hgb Hct RDW Neut % (Auto) Lymph % (Auto) Lymph # (Auto) [place] # (Auto) Eos # (Auto) Absolute Neutrophils ABG Methemoglobin VBG pCO2 VBG pO2 VBG HCO3 VBG Total CO2 VBG O2 Saturation VBG Base Excess VBG Lactic Acid Carboxyhemoglobin Total Hemoglobin Carbon Dioxide Anion Gap 17.0 H Creatinine 1.5 H Glucose Uric Acid Calcium Phosphorus Magnesium Direct Bilirubin GGT AST 177 H ALT 91 H Alkaline Phosphatase 153 H Lactate Dehydrogenase C-Reactive Protein Total Protein Albumin Albumin/Globulin Ratio Procalcitonin Urine Appearance Urine Protein Urine WBC Amorphous Crystals Hyaline Casts Urine Mucus CSF RBC CSF Total Nucleated Auto CSF Neutrophils CSF Monocytes Ur Amphetamines Screen U Marijuana (THC) Screen Meds: Medications Acetaminophen (Tylenol) 650 mg PO Q4-6HP PRN; Protocol PRN Reason: Per Pain Protocol/Fever > 101 Bisacodyl (Dulcolax) 10 mg CA Q2-3DAYS PRN PRN Reason: Constipation Docusate Sodium (Colace) 100 mg PO BID [facility] Heparin Sodium (Porcine) (Heparin) 5,000 unit SQ Q12 [facility] Last Admin: 05/07/20 21:50 Dose: 5,000 unit Documented by: Acetaminophen (Ofirmev) 650 mg in 65 mls @ 130 mls/hr IV Q6HP PRN; Protocol PRN Reason: Per Pain Protocol/Fever > 101 Magnesium Sulfate (Magnesium Sulfate) 2 gm in 50 mls @ 50 mls/hr IV UD PRN PRN Reason: MG = or < 1.7 Piperacillin Sod/Tazobactam (Sod 3.375 gm/ Dextrose) 50 mls @ 100 mls/hr IV Q6H [facility]; Protocol Last Admin: 05/07/20 17:41 Dose: 100 mls/hr Documented by: Vancomycin HCl 1,000 mg/ (Sodium Chloride) 250 mls @ 250 mls/hr IV Q8H [facility] Last Infusion: 05/07/20 17:42 Dose: Infused Documented by: Potassium Chloride 40 meq/ (Dextrose) 520 mls @ 130 mls/hr IV UD PRN PRN Reason: K+ = or < 3.5 Melatonin (Melatonin 3mg Tablet) 3 mg PO HSP PRN PRN Reason: Insomnia Ondansetron HCl (Zofran Odt) 4 mg SL Q4-6HP PRN; Protocol PRN Reason: Nausea And Vomiting Ondansetron HCl (Zofran) 4 mg IV Q4-6HP PRN; Protocol PRN Reason: Nausea And Vomiting Polyethylene Glycol (Miralax) 17 gm PO DAILYP PRN PRN Reason: Constipation Potassium Chloride (Klor-Con) 40 meq PO DAILYP PRN PRN Reason: K+ < 3.5 Senna/Docusate Sodium (Senna Plus Tablet) 1 tab PO HS [facility] Sodium Chloride (Saline Flush) 10 ml IV Q12 [facility] Sodium Chloride (Saline Flush) 10 ml IV Q8 [facility] Last Admin: 05/07/20 16:29 Dose: Not Given Documented by: Sodium Chloride (Saline Flush) 10 ml IV UD PRN PRN Reason: FLUSH Vancomycin HCl (Vancomycin Per Pharmacy) 1 order IV UD [facility]; Protocol ABG Interpretation ABG results: 05/04/20 22:11 ABG Methemoglobin 0.3 L VBG pH 7.37 VBG pCO2 37.8 L VBG pO2 53.0 H VBG HCO3 21.3 L VBG Total CO2 22.4 L VBG O2 Saturation 82.1 H VBG Base Excess -4 L A/P Assessment and plan (1) Knee effusion, left: Status: Acute Narrative A/P Narrative: * Septic shock-elevated lactate/fever/tachycardia tachypnea with multiple endorgan dysfunction. Negative pancultures/continuing antibiotic coverage. Clinically improving. White count down from 37,000-26. CSF studies negative * Early leukemoid reaction-White count improving. * Bibasilar pneumonia clinically improving on antibiotic coverage. * Acute renal failure creatinine -creatinine improved from 1.8->0.9. Likely manifestation of septic shock. * Elevated LFTs early shock liver. Resolved. * Anion gap lactic acidosis -resolved with normalization of lactic acid * Left knee swelling status post arthrocentesis. White count 6400. Unlikely septic joint. Knee pain much improved * Injection drug use-counseled for cessation, Case management to coordinate rehab resources/outpatient substance abuse detoxification program * Full code Plan * Continue antibiotics * Possible discharge in 24 hours if clinically improved * Continue mobilization * Nutrition support Critical care time spent over 35 minutes Time Spent With Patient Time: Total time spent is greater than 50% in coordination of care (as documented) at patient's floor/unit and/or counseling patient:
[2020-05-08] MEDS: PIPERACILLIN SODIUM/TAZOBACTAM 3.375 GM in DEXTROSE 5% IN WATER 50 ML IV SCH (06:00)
[2020-05-08] MEDS: 0.9 % SODIUM CHLORIDE 10 ML SYRINGE IV SCH ×3 (06:01→09:37)
[2020-05-08 06:46] LABS: Basophils # (Auto) 0.06 K/mcL (0.00-0.20); Basophils % (Auto) 0.4 % (0.0-2.0); Eosinophils # (Auto) 1.16 K/mcL (0.00-0.70); Hematocrit 41.3 % (41.0-55.0); Hemoglobin 13.4 g/dL (13.5-16.5); Lymphocytes # (Auto) 1.72 K/mcL (1.50-4.80); Lymphocytes % (Auto) 11.9 % (15.0-49.0); Mean Corpuscular HGB Conc 32.4 g/dL (31.0-36.0); Monocytes # (Auto) 0.86 K/mcL (0.10-0.90); Monocytes % (Auto) 5.9 % (1.0-12.0); Neutrophils % (Auto) 73.8 % (38.0-78.0); Platelet Count 253 K/mcL (140-440); Red Cell Distribution Width 13.9 % (11.5-14.5); WBC 14.5 K/mcL (4.5-11.0)
--- NOTE | 2020-05-08 07:06 | Discharge Summary ---
Discharge Provider Provider Patient information: Note initiated : 05/08/20 at 7:03 am Service Date, if different from initiated Date: [] Patient: Aime De La Fuente 40 y/o M admitted on 05/04/20 for over dose of meth. Discharge diagnosis * Septic shock-secondary pneumonia. Clinically resolved now off pressors. Discharging with advised to continue antibiotic for additional 4 days. Negative pancultures * Early leukemoid reaction-White count down from 37.5-14 * Bibasilar pneumonia clinically improving on antibiotic coverage. Continue additional 4 days oral antibiotics * Acute renal failure creatinine -creatinine improved from 1.8->0.9. Likely manifestation of septic shock. * Elevated LFTs early shock liver. Resolved. * Anion gap lactic acidosis -resolved with normalization of lactic acid * Left knee swelling status post arthrocentesis. White count 6400. Unlikely septic joint. 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 Patient missed going to work for over a week however did not seek medical help. He complains of associated poor appetite but denies dysuria, diarrhea, skin rash, hematuria cough. He also denies sick contacts. Patient does complains of lower back pain/left knee swelling/weakness left leg but denies diplopia/draining skin lesions. He is extremely anxious and fidgety He is a regular injection drug use methamphetamine and last used an hour and a half prior to presentation patient his friend helped him inject external jugular vein. Initial work-up in the ER was consistent with septic shock with systolics in 80s with tachycardia 140/tachypnea 35/hypoxia requiring 4 L oxygen and a fever of 102.5. Patient received 5 L of crystalloid bolus started on pressors. Cultures were drawn and antibiotics initiated. Lactic acid 4.4/creatinine 1.5/elevated LFTs consistent with multiple endorgan dysfunction Subsequently hospitalist service was consulted for admission and management of septic shock from unclear source. Likely bacteremia from injection drug use 05/05-patient critically ill and septic shock requiring pressors. Status post 7 discussed lines. Echocardiogram completed. White count at 35,000 indicative leukemoid reaction. Cultures negative so far. On broad-spectrum antibiotic coverage. Improving urine output. Lactate downtrending. Creatinine up from 1.5-1.8 however urine output more than 40 cc an hour. Magnesium 1.4, phosphorus 2.2, urine drug screen positive for meth/marijuana, Covid PCR pending, left knee joint fluid aspirate 6000 white cell. Central line secured. Procalcitonin 79. 05/06-patient feels a lot better. White count 37.5. CT abdomen chest and pelvis no evidence of acute process or abscess. Cultures negative so far. Echocardiogram no evidence of valvular vegetation. Low probability endocarditis due to normal ESR/absent Os[place] nodes/splinter hemorrhage. Improve renal function creatinine down to 1. Weaning pressors now at 3 mics Levophed. Frequent PVCs noted on telemetry. X-ray chest worsening bibasilar pneumonia. Continuing antibiotic coverage, discontinue IV fluids 05/07-overnight persistent headache/generalized body ache. Mild photophobia. Lumbar puncture performed today. Normal CSF protein/glucose, semibloody tap. Fever defervesced. Off pressors. Remains afebrile. Symptoms much improved t his evening. Headache and neck stiffness resolved. Will likely discharge in 24 hours on oral antibiotics. 05/08 patient doing well. White count normalized.-Headache resolved. CSF studies negative. Discharging on additional 4 days antibiotics for pneumonia coverage. Advised to refrain from IV drug use. Date of admission: 05/04/20 23:45 Discharge date: 05/08/20 Primary care physician: PCP No Consults: 05/04/20 Consult to Physician [CONS] Stat Comment: Consulting Provider: Shantanu Cordova Reason For Exam: Physician to Consult 05/06/20 10:17 Consult to Physician [CONS] Routine Comment: Consulting Provider: [place] Reason For Exam: Physician to Consult Discharge Meds Discharge Medications Home Medications amoxicillin-pot clavulanate 1 tab PO BID #8 tab 05/08/20 [Rx Last Taken Unknown] levofloxacin 750 mg PO DAILY #5 tab 05/08/20 [Rx Last Taken Unknown] COURSE Hospital Course Hospital course: . Discharge diagnosis: . Time Spent with Patient Time attestation: Total time spent providing and/or coordinating discharge services: EXAM Constitutional Vitals: Temp Pulse Resp BP Pulse Ox 98 F 80 16 118/78 94 05/08/20 06:54 05/08/20 06:54 05/08/20 06:54 05/08/20 06:54 05/08/20 06:54 Discharge Data Data Completed and Pending Labs on day of discharge: Labs from last 24 hours 05/08/20 05/08/20 05/08/20 06:04 06:04 06:04 WBC 14.5 H RBC 5.10 Hgb 13.4 L Hct 41.3 MCV 81.0 MCH 26.3 MCHC 32.4 RDW 13.9 Plt Count 253 MPV 9.0 Neut % (Auto) 73.8 Lymph % (Auto) 11.9 L [place] % (Auto) 5.9 Eos % (Auto) 8.0 H Baso % (Auto) 0.4 Lymph # (Auto) 1.72 [place] # (Auto) 0.86 Eos # (Auto) 1.16 H Baso # (Auto) 0.06 Absolute Neutrophils 10.66 H Sodium Pending Potassium Pending Chloride Pending Carbon Dioxide Pending Anion Gap Pending BUN Pending Creatinine Pending GFR Calculation Pending Glucose Pending Uric Acid Pending Calcium Pending Phosphorus Pending Magnesium Pending Total Bilirubin Pending Direct Bilirubin Pending GGT Pending AST Pending ALT Pending Alkaline Phosphatase Pending Lactate Dehydrogenase Pending Total Protein Pending Albumin Pending Globulin Pending Albumin/Globulin Ratio Pending Triglycerides Pending CSF Source CSF Appearance CSF Color CSF RBC CSF Total Nucleated Auto CSF Neutrophils CSF Lymphocytes CSF Monocytes CSF Glucose CSF Total Protein Vancomycin Trough Pending Hepatitis A IgM Ab Hep Bs Antigen Hep B Core IgM Ab Hepatitis C Antibody HCV RNA Quant (PCR) HCV RNA PCR log IUs/ml Herpes Simplex Source HSV I DNA PCR HSV II DNA PCR HIV 1&2 Ag/Ab, 4th Gen 05/07/20 05/07/20 05/07/20 14:49 14:49 11:27 WBC RBC Hgb Hct MCV MCH MCHC RDW Plt Count MPV Neut % (Auto) Lymph % (Auto) [place] % (Auto) Eos % (Auto) Baso % (Auto) Lymph # (Auto) [place] # (Auto) Eos # (Auto) Baso # (Auto) Absolute Neutrophils Sodium Potassium Chloride Carbon Dioxide Anion Gap BUN Creatinine GFR Calculation Glucose Uric Acid Calcium Phosphorus Magnesium Total Bilirubin Direct Bilirubin GGT AST ALT Alkaline Phosphatase Lactate Dehydrogenase Total Protein Albumin Globulin Albumin/Globulin Ratio Triglycerides CSF Source Tube 1 Tube 1 CSF Appearance Clear Clear CSF Color Light pink Slightly pink CSF RBC 2433 H 2433 H CSF Total Nucleated Auto 47 H 47 H CSF Neutrophils 36 H 36 H CSF Lymphocytes 55 55 CSF Monocytes 9 L 9 L CSF Glucose 60 CSF Total Protein 24.0 Vancomycin Trough Hepatitis A IgM Ab Non-reactive Hep Bs Antigen Negative Hep B Core IgM Ab Non-reactive Hepatitis C Antibody Non-reactive HCV RNA Quant (PCR) Pending HCV RNA PCR log IUs/ml Pending Herpes Simplex Source HSV I DNA PCR HSV II DNA PCR HIV 1&2 Ag/Ab, 4th Gen Non-reactive 05/07/20 05/07/20 11:26 04:08 WBC RBC Hgb Hct MCV MCH MCHC RDW Plt Count MPV Neut % (Auto) Lymph % (Auto) [place] % (Auto) Eos % (Auto) Baso % (Auto) Lymph # (Auto) [place] # (Auto) Eos # (Auto) Baso # (Auto) Absolute Neutrophils Sodium 139 Potassium 3.8 Chloride 107 Carbon Dioxide 22 Anion Gap 10.0 BUN 9 Creatinine 0.9 GFR Calculation 108 Glucose 53 L Uric Acid 2.2 L Calcium 8.0 L Phosphorus 2.5 Magnesium 1.8 Total Bilirubin 0.4 Direct Bilirubin < 0.2 GGT 141 H AST 34 ALT 54 H Alkaline Phosphatase 166 H Lactate Dehydrogenase 241 H Total Protein 5.9 Albumin 2.7 L Globulin 3.2 Albumin/Globulin Ratio 0.8 L Triglycerides 90 CSF Source CSF Appearance CSF Color CSF RBC CSF Total Nucleated Auto CSF Neutrophils CSF Lymphocytes CSF Monocytes CSF Glucose CSF Total Protein Vancomycin Trough Hepatitis A IgM Ab Hep Bs Antigen Hep B Core IgM Ab Hepatitis C Antibody HCV RNA Quant (PCR) HCV RNA PCR log IUs/ml Herpes Simplex Source Cancelled HSV I DNA PCR Cancelled HSV II DNA PCR Cancelled HIV 1&2 Ag/Ab, 4th Gen Preliminary micro results at discharge 05/04/20 21:08 Blood Culture - Preliminary Blood 05/04/20 19:56 Blood Culture - Preliminary Blood 05/07/20 14:49 Gram Stain - Preliminary Cerebral Spinal Fluid - Cerebral Spinal Fluid CSF Culture - Preliminary 05/05/20 15:58 Blood Culture - Preliminary Blood 05/05/20 15:54 Blood Culture - Preliminary Blood 05/05/20 01:17 Fungal Culture - Preliminary Synovial Fluid - Knee Discharge Plan Patient/Caregiver Discharge Instructions Activity: increase activity as tolerated Diet: Regular Diet Activity Restrictions/Additional Instructions: Continue Augmentin and Levaquin for additional 5 days return to ER if worsening fever chills shortness of breath follow-up PCP in 7 days refrain from IV drug use Prescriptions: New amoxicillin-pot clavulanate 875-125 mg Tablet 1 tab PO BID Qty: 8 RF: 0 levofloxacin [levofloxacin] 750 MG tablet 750 mg PO DAILY Qty: 5 RF: 0 Follow Up Plan Follow up with: No,PCP [Primary Care Provider] - Patient Disposition: Home, Self-Care Prognosis: Undetermined Rehab Potential: Fair I certify that the patient requires SNF services: No Overall status at discharge: patient is progressing back to baseline Discharge Orders: Discharge Order (Routine); Ordered 05/08/20 Ordered By: Shantanu Cordova
[2020-05-08 07:11] LABS: ALT/SGPT 46 U/L (<40); AST/SGOT 24 U/L (<40); Albumin 2.9 gm/dL (3.2-5.2); Albumin/Globulin Ratio 0.8 (1.0-2.3); Alkaline Phosphatase 173 U/L (39-117); Bilirubin,Direct < 0.2 mg/dL (<0.3); Bilirubin,Total 0.2 mg/dL (0.1-1.0); Blood Urea Nitrogen 8 mg/dL (6-20); Calcium 8.6 mg/dL (8.6-10.4); Carbon Dioxide 24 mmol/L (22-30); Chloride 107 mmol/L (96-108); Globulin 3.8 gm/dL (2.2-3.7); Glomerular Filtration Rate 95; Glucose 100 mg/dL (70-105); Lactate Dehydrogenase 211 U/L (135-225); Phosphorous 3.5 mg/dL (2.5-4.5); Triglycerides 100 mg/dL (<150); Uric Acid 2.7 mg/dL (2.5-8.0)
[2020-05-08] MEDS: DOCUSATE SODIUM 100 MG CAPSULE PO SCH (09:37)
[2020-05-08] MEDS: VANCOMYCIN 1,000 MG in 0.9 % SODIUM CHLORIDE 250 ML IV SCH (09:37)
[2020-05-08] MEDS: HEPARIN 5,000 UNIT/ML VIAL SQ SCH (09:37)
[2020-05-08] MEDS ORDERED: FLU VACC QS2020-21(6MOS UP)/PF 60 MCG/0.5 ML SYRINGE IM ONE (10:00)
== END 2020-05-08 12:25 | disposition home or self-care (01) | DRG 871 ==
LOC: ED 18:56 → ICU 23:45 → MEDSUR 05-07 12:29
PROVIDERS: ADMIT Internal Medicine; ATTEND Internal Medicine